=== PATIENT | male | born 1955 | race Caucasian/White ===

== ENCOUNTER → 2017-05-07 | Outpatient (CLI) | payer BC ==
[2017-05-07 16:03] LABS: Anisocytosis Slight; CH 18.7; CHCM 26.3; HCT 25.6 % (39.0-53.0); HDW 3.91; Hypochromasia Marked; MCH 19.3 pg (25.0-35.0); MCHC 27.1 g/dL (31.0-37.0); MCV 71.2 fL (80.0-100.0); Mean Platelet Volume 6.9; Microcytosis Moderate; Poikilocytosis Slight; RDW 16.4 % (11.5-15.5); WBC 4.9 k/uL (3.8-10.6)
[2017-05-07 16:30] LABS: HGB 6.9 gm/dL (13.0-17.5)
== END ==
LOC: LABPAT 14:29
PROVIDERS: ATTEND Internal Medicine Interventional Cardiology
DX: Z01.812 Encounter for preprocedural laboratory examination (principal); I25.10 Atherosclerotic heart disease of native coronary artery without angina pectoris
CPT/HCPCS: 36415; 85027

== ENCOUNTER → 2017-05-08 | Outpatient (CLI) | payer BC ==
[2017-05-08 13:37] LABS: % Iron Saturation 3.7 % (20-50)
== END | disposition home or self-care (01) ==
LOC: LABWHC1 07:56
PROVIDERS: ATTEND Internal Medicine Interventional Cardiology
DX: I25.10 Atherosclerotic heart disease of native coronary artery without angina pectoris (principal); D64.9 Anemia, unspecified
CPT/HCPCS: 36415; 82728; 83540; 83550

== ENCOUNTER 2017-05-26 11:53 | Day surgery (SDC) | payer BC ==
[2017-05-22 15:26] VITALS: BMI 37.3
[~2017-05-26 11:53] MED LIST: LACTATED RINGERS 1,000 ML IV SCH; LIDOCAINE 1% 20 ML VIAL (10MG/ML) FOR IV START INTRADERMA PRN
[2017-05-26 12:47] VITALS: RESP 18; TEMP 97.8
[2017-05-26] MEDS ORDERED: PROPOFOL 10 MG/ML 20 ML VIAL IV ONE (13:02)
[2017-05-26] MEDS ORDERED: fentaNYL (PF) 50 MCG/ML 2 ML AMP ONE (13:02)
[2017-05-26 13:35] LABS: Anisocytosis Moderate; Basophils % (A) 1 %; CH 20.1; CHCM 28.1; Eosinophils # (A) 0.1 k/uL (0-0.7); Eosinophils % (A) 2 %; HCT 31.1 % (39.0-53.0); HDW 3.72; Hypochromasia Marked; Luc # (Auto) 0.15; Luc % (Auto) 4; Lymphocytes # (A) 0.9 k/uL (1.0-4.8); Lymphocytes % (A) 21 %; MCH 21.2 pg (25.0-35.0); MCHC 29.6 g/dL (31.0-37.0); MCV 71.7 fL (80.0-100.0); Mean Platelet Volume 6.6; Microcytosis Marked; Monocytes # (A) 0.2 k/uL (0-1.0); Monocytes % (A) 5 %; Neutrophils # (A) 2.9 k/uL (1.3-7.7); Neutrophils % (A) 69 %; Poikilocytosis Slight; RBC 4.34 m/uL (4.30-5.90); RDW 20.1 % (11.5-15.5); WBC 4.3 k/uL (3.8-10.6); WBC (Perox) 4.33
[2017-05-26 13:38] VITALS: PULSE 67
--- NOTE | 2017-05-26 13:39 | P.PCN ---
Date of Procedure: 05/26/17 Preoperative Diagnosis: Postoperative Diagnosis: Procedure(s) Performed: Procedures: 1. Esophagogastroduodenoscopy and biopsy. 2. Total colonoscopy. Preoperative diagnosis: Iron deficiency anemia. Postoperative diagnosis: 1. Very small sliding hiatal hernia with no obvious esophagitis or complicated reflux disease. 2. Mild antral gastritis. 3. Mild duodenitis with no ulcers or active bleeding. 4. Internal hemorrhoids, otherwise, exam of the colon to the cecum within normal limits. Preparation: HalfLytely prep. Sedation: Was provided by anesthesia. Brief clinical history: The patient is a 61-year-old male who is referred for this evaluation because of profound anemia, Hb 6.9, noted earlier this month with decreased MCV. The patient has history of polyps and on his last colonoscopy in January 2016 he had 3 small polyps removed. His prior exam before that was in October 2010. He had no prior upper endoscopy. He has no significant GI complaints. Procedure: With the patient on his left lateral decubitus position and after informed consent and adequate sedation, I passed the Olympus-GIF 160 video upper endoscope through the cricopharyngeus down the esophagus. GE junction was around 38 cm from the incisors and there was a very small sliding hiatal hernia. The esophagus did not show any obvious erosions, ulcers, strictures or Salas's esophagus. The endoscope was then passed into the stomach which was insufflated with air and inspected in detail including the retroflex view in the cardia. There was minimal mottling and erythema in the antrum but no ulcers or erosions. Pyloric channel, duodenal bulb, post bulbar area and ending duodenum were examined. There was some patches of erythema and submucosal hemorrhage in the duodenal bulb but no ulcers, erosions or bleeding. I obtained biopsies from the duodenum, antrum and esophagus then the endoscope was withdrawn and I proceeded with the colonoscopy. Perianal area did not show any fissures or fistulas. There were no masses felt on digital rectal examination. The Olympus CFQ 160L video colonoscope was then inserted in the rectum in the usual fashion and advanced to the cecum. There were no polyps or tumors seen or any mucosal abnormalities or bleeding or any obvious diverticular disease. I retroflexed endoscope in the rectum before the endoscope was withdrawn. Grade 2 internal hemorrhoids were noted and there was no bleeding. The patient tolerated the procedure well. Plan: The patient was reassured. If he continues to manifest evidence of bleeding and anemia, I would recommend capsule endoscopy to evaluate the small intestine. He will follow up with you as planned and I will be happy to see as outpatient if the problem persists or recurs. Implants: Indications for Procedure: Operative Findings: Description of Procedure:
[2017-05-26 13:42] LABS: HGB 9.2 gm/dL (13.0-17.5)
[2017-05-26 13:56] VITALS: BP 130/76
== END 2017-05-26 14:33 | disposition home or self-care (01) ==
LOC: ORWHC2ENDO 11:53
DX: K29.50 Unspecified chronic gastritis without bleeding (principal); K21.0 Gastro-esophageal reflux disease with esophagitis; K44.9 Diaphragmatic hernia without obstruction or gangrene; K29.80 Duodenitis without bleeding; K64.1 Second degree hemorrhoids; D50.9 Iron deficiency anemia, unspecified; I25.10 Atherosclerotic heart disease of native coronary artery without angina pectoris; I10 Essential (primary) hypertension; I49.9 Cardiac arrhythmia, unspecified; E78.5 Hyperlipidemia, unspecified; G47.33 Obstructive sleep apnea (adult) (pediatric); Z79.02 Long term (current) use of antithrombotics/antiplatelets; Z79.82 Long term (current) use of aspirin; Z79.899 Other long term (current) drug therapy
CPT/HCPCS: 88305; 85025; 88312; 88342; 45378; 43239; J3010; J2704

== ENCOUNTER → 2017-06-30 | Outpatient (CLI) | payer BC ==
[2017-06-30 10:51] LABS: Anisocytosis Slight; CH 21.4; CHCM 28.8; HCT 34.7 % (39.0-53.0); HGB 10.2 gm/dL (13.0-17.5); Hypochromasia Marked; MCH 21.7 pg (25.0-35.0); MCHC 29.3 g/dL (31.0-37.0); Mean Platelet Volume 8.3; Microcytosis Moderate; RBC 4.68 m/uL (4.30-5.90); RDW 18.8 % (11.5-15.5); WBC 5.2 k/uL (3.8-10.6)
== END | disposition home or self-care (01) ==
LOC: LABWHC1 10:28
PROVIDERS: ATTEND Internal Medicine Interventional Cardiology
DX: D64.9 Anemia, unspecified (principal); I25.10 Atherosclerotic heart disease of native coronary artery without angina pectoris
CPT/HCPCS: 36415; 85027

== ENCOUNTER → 2017-09-18 | Outpatient (CLI) | payer BC ==
[2017-09-18 09:08] LABS: Anisocytosis Moderate; HDW 3.53; Microcytosis Slight; Poikilocytosis Slight
[2017-09-18 09:10] LABS: CH 27.7; CHCM 33.5; HGB 10.4 gm/dL (13.0-17.5); MCH 26.9 pg (25.0-35.0); MCHC 32.6 g/dL (31.0-37.0); MCV 82.7 fL (80.0-100.0); Mean Platelet Volume 7.8; RBC 3.87 m/uL (4.30-5.90); RDW 20.3 % (11.5-15.5); WBC 4.2 k/uL (3.8-10.6)
[2017-09-18 09:15] LABS: Anion Gap 10 mmol/L; Blood Urea Nitrogen 14 mg/dL (9-20); Carbon Dioxide 26 mmol/L (22-30); Chloride 103 mmol/L (98-107); Glucose 102 mg/dL (74-99); Potassium 4.1 mmol/L (3.5-5.1); Sodium 139 mmol/L (137-145)
[2017-09-18 09:16] LABS: ALT 34 U/L (21-72); AST 23 U/L (17-59); Alkaline Phosphatase 69 U/L (38-126); Non-African American GFR(MDRD) >60 (>60 ml/min/1.73 sqM); Total Bilirubin 0.4 mg/dL (0.2-1.3); Total Protein 7.4 g/dL (6.3-8.2)
[2017-09-18 15:52] LABS: Iron Saturation 9.55 (15.00-50.00)
== END | disposition home or self-care (01) ==
LOC: LABWHC1 08:31
PROVIDERS: ATTEND Internal Medicine
DX: I10 Essential (primary) hypertension (principal); E78.5 Hyperlipidemia, unspecified; D64.9 Anemia, unspecified
CPT/HCPCS: 36415; 80053; 82728; 83540; 83550; 85027

== ENCOUNTER → 2021-01-18 | Outpatient (CLI) | payer BC | END | disposition home or self-care (01) | LOC: LABWHC1 13:15 | PROVIDERS: ATTEND Internal Medicine | DX: Z03.818 Encounter for observation for suspected exposure to other biological agents ruled out (principal); Z20.822 Contact with and (suspected) exposure to COVID-19 | CPT/HCPCS: U0003; C9803 ==

== ENCOUNTER 2021-03-26 12:12 | Emergency (ER) | payer BC ==
[2021-03-26 12:30] VITALS: BP 177/95; PULSE 96; TEMP 98.4
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
--- NOTE | 2021-03-26 13:30 | US ---
EXAMINATION TYPE: US venous doppler duplex LE RT DATE OF EXAM: 03/26/2021 1:05 PM COMPARISON: NONE CLINICAL HISTORY: pain. Pt states right leg pain and redness SIDE PERFORMED: Right TECHNIQUE: The lower extremity deep venous system is examined utilizing real time linear array sonog jose with graded compression, doppler sonography and color-flow sonography. VESSELS IMAGED: Common Femoral Vein Deep Femoral Vein Greater Saphenous Vein * Femoral Vein Popliteal Vein Small Saphenous Vein * Proximal Calf Veins (* superficial vessels) Right Leg: Negative for DVT IMPRESSION: No evidence for DVT at this time.
[2021-03-26 14:07] VITALS: RESP 17
== END 2021-03-26 14:07 | disposition home or self-care (01) ==
LOC: EC 12:12
DX: L03.115 Cellulitis of right lower limb (principal); E78.5 Hyperlipidemia, unspecified; I10 Essential (primary) hypertension; I25.10 Atherosclerotic heart disease of native coronary artery without angina pectoris; K21.9 Gastro-esophageal reflux disease without esophagitis; M19.90 Unspecified osteoarthritis, unspecified site; Z79.82 Long term (current) use of aspirin; F41.9 Anxiety disorder, unspecified
CPT/HCPCS: 99284

== ENCOUNTER 2021-04-17 10:12 | Emergency (ER) | payer BC ==
[2021-04-17 10:36] VITALS: BP 138/76; PULSE 73; RESP 18; TEMP 98.2
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
== END 2021-04-17 11:40 | disposition left against medical advice (07) ==
LOC: EC 10:12
DX: L03.115 Cellulitis of right lower limb (principal); E78.5 Hyperlipidemia, unspecified; I10 Essential (primary) hypertension; I25.10 Atherosclerotic heart disease of native coronary artery without angina pectoris; K21.9 Gastro-esophageal reflux disease without esophagitis; G47.30 Sleep apnea, unspecified; M19.90 Unspecified osteoarthritis, unspecified site; Z53.29 Procedure and treatment not carried out because of patient's decision for other reasons; Z79.82 Long term (current) use of aspirin
CPT/HCPCS: 99282

== ENCOUNTER 2021-04-17 16:44 | Observation (INO) | payer BC ==
--- NOTE | 2021-04-17 17:39 | ED ---
General Adult HPI - General Chief complaint: Skin/Abscess/Foreign Body Stated complaint: revisit-IV antibiotics Time Seen by Provider: 04/17/21 16:45 Source: patient, RN notes reviewed, old records reviewed Mode of arrival: ambulatory Limitations: no limitations - History of Present Illness Initial comments: This is a 65-year-old male who presents emergency Department complaining of a two-week history of right leg cellulitis. Patient was on antibiotics for 10 days but the redness is getting worse and it's very tender. Patient states she's already had an ultrasound that leg and there was no clot. Patient's primary medical care doctor wanted him to come in to be admitted for cellulitis. Patient denies any fever chills per patient denies any recent injury or trauma. Patient denies any cuts or openings to the skin that he knows of. Patient d enies being a diabetic. - Related Data Home Medications Medication Instructions Recorded Confirmed Aspirin [Adult Low Dose Aspirin EC] 81 mg PO DAILY 05/22/17 04/17/21 Carvedilol [Coreg] 12.5 mg PO BID 05/22/17 04/17/21 Albuterol Inhaler [Ventolin Hfa 2 puff INHALATION RT-Q4H PRN 04/17/21 04/17/21 Inhaler] Ferrous Sulfate [Feosol] 325 mg PO HS 04/17/21 04/17/21 Irbesartan [Avapro] 300 mg PO DAILY 04/17/21 04/17/21 Rosuvastatin [Crestor] 20 mg PO HS 04/17/21 04/17/21 amLODIPine [Norvasc] 5 mg PO HS 04/17/21 04/17/21 hydroCHLOROthiazide 25 mg PO DAILY 04/17/21 04/17/21 Allergies Allergy/AdvReac Type Severity Reaction Status Date / Time No Known Allergies Allergy Verified 04/17/21 17:28 Review of Systems ROS Statement: Those systems with pertinent positive or pertinent negative responses have been documented in the HPI. ROS Other: All systems not noted in ROS Statement are negative. Past Medical History Past Medical History: Coronary Artery Disease (CAD), Chest Pain / Angina, GERD/Reflux, Hyperlipidemia, Hypertension, Osteoarthritis (OA), Sleep Apnea/CPAP/BIPAP Additional Past Medical History / Comment(s): occ "heart fluttering" , occ palpitations, anemia- had iron infusion 1 week ago for Hgb 6.9- Dr LORRIE Waller canceled cardiac procedure and wanted pt to have EGD/Colonoscopy first. covid 19 03/21 History of Any Multi-Drug Resistant Organisms: None Reported Past Surgical History: Heart Catheterization With Stent, Orthopedic Surgery Additional Past Surgical History / Comment(s): angioplasty x 2/total 3 stents, rt tibia/fibia-fx with pin, Past Anesthesia/Blood Transfusion Reactions: Motion Sickness Date of Last Stent Placement:: 07/2014 Past Psychological History: Anxiety, Panic Disorder Smoking Status: Never smoker Past Alcohol Use History: Rare Past Drug Use History: None Reported - Past Family History Brother(s) Family Medical History: Cancer General Exam - General Exam Comments Initial Comments: GENERAL: Patient is well-developed and well-nourished. Patient is nontoxic and well- hydrated and is in mild distress. ENT: Neck is soft and supple. No significant lymphadenopathy is noted. Oropharynx is clear. Moist mucous membranes. Neck has full range of motion without eliciting any pain. EYES: The sclera were anicteric and conjunctiva were pink and moist. Extraocular movements were intact and pupils were equal round and reactive to light. Eyelids were unremarkable. PULMONARY: Unlabored respirations. Good breath sounds bilaterally. No audible rales rhonchi or wheezing was noted. CARDIOVASCULAR: There is a regular rate and rhythm without any murmurs gallops or rubs. ABDOMEN: Soft and nontender with normal bowel sounds. SKIN: Skin is clear with no lesions or rashes and otherwise unremarkable. NEUROLOGIC: Patient is alert and oriented x3. Cranial nerves II through XII are grossly intact. Motor and sensory are also intact. Normal speech, volume and content. Symmetrical smile. MUSCULOSKELETAL: Patient has erythema of the lower right leg is very tender to touch and warm to touch. LYMPHATICS: No significant lymphadenopathy is noted PSYCHIATRIC: Normal psychiatric evaluation. Limitations: no limitations Course Vital Signs 04/17/21 16:46 Temperature 98.5 F Pulse Rate 80 Respiratory 20 Rate Blood Pressure 152/79 O2 Sat by Pulse 96 Oximetry Medical Decision Making - Medical Decision Making Patient was started on [facility] emergency department. I spoke with Dr. Alvarez she agreed to admit the patient admitted the patient I wrote admitting orders. - Lab Data Result diagrams: 04/17/21 17:40 04/17/21 17:40 Lab Results 04/17/21 04/17/21 04/17/21 Range/Units 17:40 17:40 17:40 WBC 6.6 (3.8-10.6) k/uL RBC 4.67 (4.30-5.90) m/uL Hgb 13.1 (13.0-17.5) gm/dL Hct 39.4 (39.0-53.0) % MCV 84.4 (80.0-100.0) fL MCH 28.0 (25.0-35.0) pg MCHC 33.2 (31.0-37.0) g/dL RDW 14.1 (11.5-15.5) % Plt Count 246 (150-450) k/uL MPV 7.0 Neutrophils % 67 % Lymphocytes % 22 % Monocytes % 5 % Eosinophils % 4 % Basophils % 1 % Neutrophils # 4.4 (1.3-7.7) k/uL Lymphocytes # 1.4 (1.0-4.8) k/uL Monocytes # 0.3 (0-1.0) k/uL Eosinophils # 0.3 (0-0.7) k/uL Basophils # 0.1 (0-0.2) k/uL Sodium 138 (137-145) mmol/L Potassium 3.9 (3.5-5.1) mmol/L Chloride 103 (98-107) mmol/L Carbon Dioxide 28 (22-30) mmol/L Anion Gap 7 mmol/L BUN 16 (9-20) mg/dL Creatinine 0.69 (0.66-1.25) mg/dL Est GFR (CKD-EPI)AfAm >90 (>60 ml/min/1.73 sqM) Est GFR (CKD-EPI)NonAf >90 (>60 ml/min/1.73 sqM) Glucose 94 (74-99) mg/dL Plasma Lactic Acid Edwin 0.7 (0.7-2.0) mmol/L Calcium 9.4 (8.4-10.2) mg/dL Total Bilirubin 0.4 (0.2-1.3) mg/dL AST 26 (17-59) U/L ALT 19 (4-49) U/L Alkaline Phosphatase 108 (38-126) U/L Total Protein 7.8 (6.3-8.2) g/dL Albumin 4.3 (3.5-5.0) g/dL Disposition Clinical Impression: Cellulitis of right leg Disposition: ADMITTED IP TO THIS [facility] Referrals: Charlee Nielsen MD [Primary Care Provider] - 1-2 days Time of Disposition: 18:55
[2021-04-17 18:08] LABS: Basophils # (A) 0.1 k/uL (0-0.2); Basophils % (A) 1 %; Eosinophils # (A) 0.3 k/uL (0-0.7); Eosinophils % (A) 4 %; HCT 39.4 % (39.0-53.0); HGB 13.1 gm/dL (13.0-17.5); Lymphocytes # (A) 1.4 k/uL (1.0-4.8); Lymphocytes % (A) 22 %; MCHC 33.2 g/dL (31.0-37.0); MCV 84.4 fL (80.0-100.0); Monocytes # (A) 0.3 k/uL (0-1.0); Monocytes % (A) 5 %; Neutrophils # (A) 4.4 k/uL (1.3-7.7); Neutrophils % (A) 67 %; Platelet Count 246 k/uL (150-450); RBC 4.67 m/uL (4.30-5.90); RDW 14.1 % (11.5-15.5); WBC 6.6 k/uL (3.8-10.6)
[2021-04-17 18:20] LABS: ALT 19 U/L (4-49); AST 26 U/L (17-59); African American GFR (CKD) >90 (>60 ml/min/1.73 sqM); Albumin 4.3 g/dL (3.5-5.0); Alkaline Phosphatase 108 U/L (38-126); Anion Gap 7 mmol/L; Blood Urea Nitrogen 16 mg/dL (9-20); Calcium 9.4 mg/dL (8.4-10.2); Carbon Dioxide 28 mmol/L (22-30); Chloride 103 mmol/L (98-107); Glucose 94 mg/dL (74-99); Non-African American GFR(CKD) >90 (>60 ml/min/1.73 sqM); Potassium 3.9 mmol/L (3.5-5.1); Sodium 138 mmol/L (137-145); Total Bilirubin 0.4 mg/dL (0.2-1.3); Total Protein 7.8 g/dL (6.3-8.2)
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
[2021-04-17] MEDS ORDERED: PIPERACILLIN-TAZOBACTAM 3.375 GM in SODIUM CHLORIDE 0.9% 100 ML IVPB STA (18:44)
[2021-04-17] MEDS ORDERED: SODIUM CHLORIDE 0.9% 1,000 ML IV ONE (18:57)
[2021-04-17] MEDS ORDERED: ALBUTEROL NEBULIZED 2.5 MG/3 ML INHALATION PRN (19:18)
[2021-04-17] MEDS ORDERED: VANCOMYCIN IV PER PHARMACY 1 EACH MISC MISCELLANE PRN (19:42)
[2021-04-17] MEDS ORDERED: VANCOMYCIN 1,750 MG in SODIUM CHLORIDE 0.9% 500 ML 500 ML IVPB ONE (20:00)
[2021-04-17] MEDS: ATORVASTATIN 40 MG TAB PO SCH (20:42)
[2021-04-17] MEDS: amLODIPine 5 MG TAB PO SCH (20:42)
[2021-04-17] MEDS: carvediloL 12.5 MG TAB PO SCH (20:43)
[2021-04-17] MEDS ORDERED: ACETAMINOPHEN TAB 325 MG TAB PO PRN (22:31)
--- NOTE | 2021-04-17 22:51 | P.HPIM ---
History of Present Illness H&P Date: 04/17/21 Chief Complaint: cellulitis failed OP therapy 65 year old male with hypertension , hyperlipidemia patient comes in upon recommendations of his PCP , due to failed OP treatment of his cellulitis of the right leg with Keflex for about 10 days now, he denies any fever, chills, recent travel , denies any injuries or recent trauma. he does have some chronic changes over his right leg due to accident in the past. he denies any open wounds or drainage. he currently feels well, reports some swelling and erythema over the right leg, warm to the touch and tender. venous duplex US done as OP reported to be negative for acute DVT ini the ED , no fever, no leukocytosis . patient given a dose of zosyn by the ED. patient had symptomatic covid infection not requiring hospital stay at end of january . he is currently asymptomatic and gradually returning to normal physical activity . he tested positive for COIVD today Review of Systems Pertinent positives as noted in HPI. All other systems were reviewed and are negative Past Medical History Past Medical History: Coronary Artery Disease (CAD), Chest Pain / Angina, GERD/Reflux, Hyperlipidemia, Hypertension, Osteoarthritis (OA), Sleep Apnea/CPAP/BIPAP Additional Past Medical History / Comment(s): occ "heart fluttering" , occ palpitations, anemia- had iron infusion 1 week ago for Hgb 6.9- Dr LORRIE Waller canceled cardiac procedure and wanted pt to have EGD/Colonoscopy first. covid 19 03/21 History of Any Multi-Drug Resistant Organisms: None Reported Past Surgical History: Heart Catheterization With Stent, Orthopedic Surgery Additional Past Surgical History / Comment(s): angioplasty x 2/total 3 stents, rt tibia/fibia-fx with pin, Past Anesthesia/Blood Transfusion Reactions: Motion Sickness Date of Last Stent Placement:: 07/2014 Past Psychological History: Anxiety, Panic Disorder Smoking Status: Never smoker Past Alcohol Use History: Rare Past Drug Use History: None Reported - Past Family History Brother(s) Family Medical History: Cancer Medications and Allergies Home Medications Medication Instructions Recorded Confirmed Type Aspirin [Adult Low Dose Aspirin EC] 81 mg PO DAILY 05/22/17 04/17/21 History Carvedilol [Coreg] 12.5 mg PO BID 05/22/17 04/17/21 History Albuterol Inhaler [Ventolin Hfa 2 puff INHALATION RT-Q4H PRN 04/17/21 04/17/21 History Inhaler] Ferrous Sulfate [Feosol] 325 mg PO HS 04/17/21 04/17/21 History Irbesartan [Avapro] 300 mg PO DAILY 04/17/21 04/17/21 History Rosuvastatin [Crestor] 20 mg PO HS 04/17/21 04/17/21 History amLODIPine [Norvasc] 5 mg PO HS 04/17/21 04/17/21 History hydroCHLOROthiazide 25 mg PO DAILY 04/17/21 04/17/21 History Allergies Allergy/AdvReac Type Severity Reaction Status Date / Time No Known Allergies Allergy Verified 04/17/21 17:28 Physical Exam Vitals: Vital Signs Temp Pulse Resp BP Pulse Ox 04/17/21 16:46 98.5 F 80 20 152/79 96 Intake and Output 04/17/21 04/17/21 04/17/21 06:59 14:59 22:59 Other: Weight 105.687 kg Constitutional: No acute distress, conversant, pleasant Eyes: Anicteric sclerae, moist conjunctiva, Pupils equal round reactive to light ENMT: NC/AT Oropharynx clear, no erythema, or exudates Neck: Supple, FROM, no masses, or JVD No carotid bruits No thyromegaly Lungs: Clear to auscultation Clear to percussion Normal respiratory effort, no accessory muscle use Cardiovascular: Heart regular in rate and rhythm, No murmurs, gallops, or rubs No peripheral edema Abdominal: Soft Nontender, no guarding, rebound or rigidity Abdomen moving with respiration Normoactive bowel sounds No hepatomegaly, No splenomegaly No palpable mass No abdominal wall hernia noted Skin: erythema and induration over the mid right leg , with area of chronic scarring. warm to the touch and tender to palpation , otherwise. Normal temperature, tone, texture, turgor No subcutaneous nodules No ulcers Extremities: No digital cyanosis No clubbing Pedal pulses intact and symmetrical Radial pulses intact and symmetrical No calf tenderness Psychiatric: Alert and oriented to person, place and time Appropriate affect fair judgement Neuro Muscles Strength 5/5 in all 4 extremities Sensation to light touch grossly present throughout Cranial nerves II-XII grossly intact No focal sensory deficits Lymphatics: no palpable cervical or supraclavicular , or inguinal lymph nodes Results CBC & Chem 7: 04/17/21 17:40 04/17/21 17:40 Assessment and Plan Assessment: cellulitis of the right lower extremity failed OP therapy follow up cultures Xray shows no meme involvement , shows only soft tissue edema s/p zosyn in ED, will discontinue start vencomycin dosing by pharmacy pain control tylenol for fever monitor vital signs chronic conditions hypertension , controlled , resume home meds hyperlipidemia , resume home meds h/o CAD, stable now COVID positive, asymptomatic CODE STATUS:full code DVT prophylaxis: heparin sc tid Discussed with: Patient, ER, RN Anticipated length of stay > than [address]: home A total of 65 minutes was spent on the care of this complex patient more than 5 0% of the time was spent in counseling and care coordination.
[2021-04-18] MEDS ORDERED: PIPERACILLIN-TAZOBACTAM 3.375 GM in SODIUM CHLORIDE 0.9% 100 ML IVPB SCH ×2
[2021-04-18 05:20] LABS: Basophils # (A) 0.1 k/uL (0-0.2); Basophils % (A) 1 %; Eosinophils # (A) 0.2 k/uL (0-0.7); Eosinophils % (A) 3 %; HCT 37.8 % (39.0-53.0); HGB 12.9 gm/dL (13.0-17.5); Lymphocytes # (A) 1.4 k/uL (1.0-4.8); Lymphocytes % (A) 23 %; MCHC 34.1 g/dL (31.0-37.0); Mean Platelet Volume 6.9; Monocytes # (A) 0.3 k/uL (0-1.0); Monocytes % (A) 5 %; Neutrophils # (A) 4.1 k/uL (1.3-7.7); Neutrophils % (A) 66 %; Platelet Count 215 k/uL (150-450); RBC 4.45 m/uL (4.30-5.90); WBC 6.2 k/uL (3.8-10.6)
[2021-04-18] MEDS: carvediloL 12.5 MG TAB PO SCH ×2 (06:45→17:25)
[2021-04-18] MEDS: hydroCHLOROthiazide 25 MG TAB PO SCH (08:37)
[2021-04-18] MEDS: ASPIRIN 81 MG PO SCH (08:37)
[2021-04-18] MEDS: VANCOMYCIN 1,750 MG in SODIUM CHLORIDE 0.9% 500 ML 500 ML IVPB SCH ×2 (08:37→20:09)
[2021-04-18] MEDS: LOSARTAN 50 MG TAB PO SCH (08:37)
[2021-04-18 10:34] LABS: African American GFR (CKD) 116.4 (60.0-200.0); Anion Gap 9.4 mmol/L (4.00-12.00); Calcium 8.8 mg/dL (8.7-10.3); Carbon Dioxide 27.6 mmol/L (21.6-31.8); Non-African American GFR(CKD) 100.4 (60.0-200.0); Potassium 3.9 mmol/L (3.5-5.5)
--- NOTE | 2021-04-18 14:05 | P.PN ---
<Oneil Blevins - Last Filed: 04/18/21 15:10> Subjective Progress Note Date: 04/18/21 Hospital course: Patient is a 65-year-old male with a past medical history of CAD with previous angioplasty and stent placement, hypertension, hyperlipidemia, GERD, obstructive sleep apnea CPAP dependent, and osteoarthritis. Patient presented to the hospital on 04/17/21 with a chief complaint of redness, pain, and swelling of right lower extremity after failing outpatient treatment for cellulitis with Keflex 10 days. Patient has been started on IV antibiotics with vancomycin and a consult has been placed to infectious disease. Patient has remained afebrile throughout hospitalization with normal vital signs. Patient also with normal WBC count of 6.6 upon arrival with repeat of 6.2. Patient did have recent infection with Covid 19 virus in which she reports testing positive at [facility] at the end of January. Patient did detect positive for Covid 19 virus through PCR again upon his arrival likely secondary to sinus infection as patient currently denies having any symptoms. Patient reports that he also had an outpatient venous Doppler of his right lower extremity a few days ago which was negative for DVTs. X-ray of right tibia and fibula showing soft tissue edema without acute osseous abnormalities, showing no evidence of osteomyelitis. Physical exam: Patient seen and fully evaluated at the bedside. He reports mild discomfort to right lower extremity and a feeling of tightness but denies any other complaints at this time. Vital signs stable. Labs unremarkable. Patient denies having any numbness/tingling/weakness or experiencing any chest pain or shortness of breath. General: non toxic, no distress, appears at stated age Derm: warm, dry. Patient with moderate redness, increased warmth, and swelling to anterior, lateral, and posterior aspect of right lower leg. Head: atraumatic, normocephalic, symmetric Eyes: EOMI, no lid lag, anicteric sclera Mouth: no lip lesion, mucus membranes moist Cardiovascular: S1S2 normal with regular rate and rhythm. No murmurs, gallops, or rubs. Positive posterior tibial pulses bilaterally. Lungs: CTA bilateral, no rhonchi, no rales , no accessory muscle use Abdominal: soft, nontender to palpation, no guarding, no appreciable organomegaly Ext: no gross muscle atrophy, no edema, no contractures Neuro: CN II-XI grossly intact, no focal neuro deficits Psych: Alert, oriented, appropriate affect Plan of care: Cellulitis of right lower extremity failed outpatient treatment -Continue IV antibiotics with vancomycin -Blood cultures obtained, pending results. -Symptomatic care and pain management. -Consult placed to infectious disease, Dr. Preston for evaluation. Hypertension -Monitor vital signs and Continuation of daily medication with amlodipine, carvedilol, hydrochlorothiazide, and losartan. Hyperlipidemia -Continue daily home medication regimen with atorvastatin 40 mg nightly. -Heart healthy diet. Obstructive sleep apnea -Continuation of home CPAP/BiPAP -Encourage use of incentive spirometry. History of CAD with previous stent placement -Continue daily home medication regimen with aspirin, amlodipine, atorvastatin, carvedilol, hydrochlorothiazide, and losartan. CODE STATUS: Full code DVT prophylaxis: Lovenox Discussed with: Patient and RN Anticipated discharge date: 1-[address]: Home A total of 45 minutes was spent on the care of this complex patient more than 50% of the time was spent in counseling and care coordination.. Objective - Vital Signs Vital signs: Vital Signs Temp 98.4 F 04/18/21 10:24 Pulse 58 L 04/18/21 10:24 Resp 15 04/18/21 10:24 BP 125/68 04/18/21 10:24 Pulse Ox 96 04/18/21 10:24 Intake & Output 04/17/21 04/18/21 04/18/21 18:59 06:59 18:59 Weight 105.687 kg - Labs CBC & Chem 7: 04/18/21 04:29 04/18/21 04:29 Labs: Abnormal Lab Results - Last 24 Hours (Table) 04/17/21 04/18/21 Range/Units 19:31 04:29 Hgb 12.9 L (13.0-17.5) gm/dL Hct 37.8 L (39.0-53.0) % Coronavirus (PCR) Detected A (Not Detectd) <Ely Alvarez A - Last Filed: 04/18/21 18:53> Subjective Patient seen and examined independently. Patient was also seen by Oneil Blevins NP and case was discussed. I am in agreement with subjective, physical exam, assessment and plan as written above and amended below. Patient states that he has had swelling in his right lower extremity for quite some time after surgery. He also has noticed darkening of his leg over time. General: non toxic, no distress, appears at stated age Ext: no gross muscle atrophy, right lower extremity with some edema, eusebio appearance, hemosiderin deposits, loss of hair in the lateral aspect of the right calf, no warmth Neuro: CN II-XI grossly intact, no focal neuro deficits Psych: Alert, oriented, appropriate affect Concerned that this may not be infectious etiology secondary to duration, no white blood cell count, and afebrile. Concerns for possible vascular disturbances secondary to history of surgery on that leg, loss of hair growth, and hemosiderin deposits noted. We'll consult vascular surgery. Objective - Vital Signs Vital signs: Vital Signs Temp 98.3 F 04/18/21 17:28 Pulse 71 04/18/21 17:28 Resp 18 04/18/21 17:28 BP 156/81 04/18/21 17:28 Pulse Ox 96 04/18/21 17:28 Intake & Output 04/17/21 04/18/21 04/18/21 18:59 06:59 18:59 Weight 105.687 kg 105.687 kg - Labs CBC & Chem 7: 04/18/21 04:29 04/18/21 04:29 Labs: Abnormal Lab Results - Last 24 Hours (Table) 04/17/21 04/18/21 Range/Units 19:31 04:29 Hgb 12.9 L (13.0-17.5) gm/dL Hct 37.8 L (39.0-53.0) % Coronavirus (PCR) Detected A (Not Detectd)
[2021-04-18] MEDS: ENOXAPARIN 40 MG/0.4 ML SYRINGE SQ SCH (17:25)
[2021-04-18 18:33] VITALS: RESP 18
[2021-04-18] MEDS: ATORVASTATIN 40 MG TAB PO SCH (20:09)
[2021-04-18] MEDS: amLODIPine 5 MG TAB PO SCH (20:09)
[2021-04-19 02:44] VITALS: BP 145/78; PULSE 69; TEMP 98.4
[2021-04-19] MEDS: hydroCHLOROthiazide 25 MG TAB PO SCH (07:29)
[2021-04-19] MEDS: ASPIRIN 81 MG PO SCH (07:29)
[2021-04-19] MEDS: VANCOMYCIN 1,750 MG in SODIUM CHLORIDE 0.9% 500 ML 500 ML IVPB SCH (07:30)
[2021-04-19] MEDS: carvediloL 12.5 MG TAB PO SCH (07:30)
[2021-04-19] MEDS: ENOXAPARIN 40 MG/0.4 ML SYRINGE SQ SCH (07:30)
[2021-04-19] MEDS: LOSARTAN 50 MG TAB PO SCH (07:30)
[2021-04-19 07:40] LABS: African American GFR (CKD) >90 (>60 ml/min/1.73 sqM); Non-African American GFR(CKD) >90 (>60 ml/min/1.73 sqM)
--- NOTE | 2021-04-19 10:10 | P.DS ---
<Oneil Blevins - Last Filed: 04/19/21 14:51> Providers Expected date of discharge: 04/19/21 Hospital Course: Discharge Diagnosis: Right lower extremity pain and swelling secondary to Peripheral venous insufficiency with venous stasis dermatitis Hypertension Hyperlipidemia Obstructive sleep apnea History of CAD with previous stent placement Hospital Course: Patient is a 65-year-old male with a past medical history of CAD with previous angioplasty and stent placement, hypertension, hyperlipidemia, GERD, obstructive sleep apnea CPAP dependent, and osteoarthritis. Patient presented to the hospital on 04/17/21 with a chief complaint of redness, pain, and swelling of right lower extremity after failing outpatient treatment for cellulitis with Keflex 10 days. Patient was started on IV antibiotics with vancomycin, admitted under our services and a consult was placed to infectious disease as well as vascular surgery. Patient has remained afebrile throughout hospitalization with normal vital signs. Patient also with normal WBC count of 6.6 upon arrival with repeat of 6.2. Patient did have recent infection with Covid 19 virus in which he reports testing positive at [facility] at the end of January. Patient did detect positive for Covid 19 virus through PCR again upon his arrival likely secondary to recent infection as patient currently denies having any symptoms. Patient reports that he also had an outpatient venous Doppler of his right lower extremity a few days ago which were also negative for DVTs. X-ray of right tibia and fibula showing soft tissue edema without acute osseous abnormalities, showing no evidence of osteomyelitis. Lower extremity erythema, swelling, and increased warmth significantly improved with elevation of right lower extremity. Order placed for compression stockings. Vascular surgery recommending outpatient follow-up for further workup and testing. Vancomycin discontinued as cellulitis was ruled out. Patient being discharged home and instructed to wear compression stockings daily. Patient to follow-up with his PCP in 1-2 days and vascular surgery in 2 weeks as discussed. All questions answered, patient stable for discharge home at this time. Physical exam: Patient seen and fully evaluated at the bedside. He reports mild discomfort to right lower extremity and a feeling of tightness but denies any other complaints at this time. Vital signs remain stable. Patient and kidneys to deny having any numbness/tingling/weakness or experiencing any chest pain or shortness of breath. General: non toxic, no distress, appears at stated age Derm: warm, dry. Patient with improvement in erythema, edema, and increased warmth of right lower extremity with elevation. Venous stasis dermatitis present. Head: atraumatic, normocephalic, symmetric Eyes: EOMI, no lid lag, anicteric sclera Mouth: no lip lesion, mucus membranes moist Cardiovascular: S1S2 normal with regular rate and rhythm. No murmurs, gallops, or rubs. Positive posterior tibial pulses bilaterally. Lungs: CTA bilateral, no rhonchi, no rales , no accessory muscle use Abdominal: soft, nontender to palpation, no guarding, no appreciable organomegaly Ext: no gross muscle atrophy, no edema, no contractures Neuro: CN II-XI grossly intact, no focal neuro deficits Psych: Alert, oriented, appropriate affect A total of 45 minutes of time were spent preparing this complex discharge summary. Patient Condition at Discharge: Good Plan - Discharge Summary Discharge Rx Participant: Yes New Discharge Prescriptions: Continue Carvedilol [Coreg] 12.5 mg PO BID Aspirin [Adult Low Dose Aspirin EC] 81 mg PO DAILY Irbesartan [Avapro] 300 mg PO DAILY hydroCHLOROthiazide 25 mg PO DAILY Albuterol Inhaler [Ventolin Hfa Inhaler] 2 puff INHALATION RT-Q4H PRN PRN Reason: Shortness Of Breath Rosuvastatin [Crestor] 20 mg PO HS Ferrous Sulfate [Iron (65 MG Elemental)] 325 mg PO HS amLODIPine [Norvasc] 5 mg PO HS Discharge Medication List Aspirin [Adult Low Dose Aspirin EC] 81 mg PO DAILY 05/22/17 [History] Carvedilol [Coreg] 12.5 mg PO BID 05/22/17 [History] Albuterol Inhaler [Ventolin Hfa Inhaler] 2 puff INHALATION RT-Q4H PRN 04/17/21 [History] Ferrous Sulfate [Iron (65 MG Elemental)] 325 mg PO HS 04/17/21 [History] Irbesartan [Avapro] 300 mg PO DAILY 04/17/21 [History] Rosuvastatin [Crestor] 20 mg PO HS 04/17/21 [History] amLODIPine [Norvasc] 5 mg PO HS 04/17/21 [History] hydroCHLOROthiazide 25 mg PO DAILY 04/17/21 [History] Follow up Appointment(s)/Referral(s): Charlee Nielsen MD [Primary Care Provider] - 04/23/21 1:30 pm Layla Martinez DO [STAFF PHYSICIAN] - 05/09/21 10:15 am (Paperwork will be sent to your house to fill out and bring to your appointment. ) Patient Instructions/Handouts: Cellulitis (DC) Activity/Diet/Wound Care/Special Instructions: Activity: As tolerated Diet: Heart healthy diet Special Instructions: Please continue to wear compression stockings throughout the day. It is important upon first thing in the morning before lower extremity swelling develops. You will need to follow up outpatient with Dr. Elias as well as with Vascular Phsician-Dr. Martinez for further testing including venous dopplers. Thank you for allowing us to participate in your care, it was a pleasure having you for our patient!!! Discharge Disposition: HOME SELF-CARE <Ely Alvarez - Last Filed: 04/19/21 18:36> Providers Date of admission: 04/17/21 18:58 Attending physician: Ely Alvarez DO Consults: 04/18/21 15:12 Consult Physician Routine Consulting Provider: Solomon Preston Consult Reason/Comments: Cellulitis RLL, failed outpatient treatment with Keflex 10 days Do you want consulting provider notified?: Yes 04/18/21 18:50 Consult Physician Routine Consulting Provider: Layla Martinez Consult Reason/Comments: right lower extremity changes Do you want consulting provider notified?: Yes Primary care physician: Charlee Nielsen MD Hospital Course: I discussed the care with Oneil Blevins NP and reviewed the findings and plan as documented in the note above. I did not physically speak with or examine the patient on this date.
--- NOTE | 2021-04-19 11:29 | P.GSCN ---
History of Present Illness Consult date: 04/19/21 Reason for Consult: Cellulitis with right lower extremity changes Requesting physician: Ely Alvarez History of present illness: A 65-year-old male patient with a past medical history of hypertension, hyperlipidemia coronary artery disease, obstructive sleep apnea and recent COVID-19 infection in March of this year presented to the emergency department due to failed outpatient treatment for cellulitis of the right lower extremity. He is been on Keflex outpatient for approximately 10 days with no improvement in the redness in his lower extremity. He does have some chronic changes of his right lower extremity due to an accident in the past in , however he has no open wounds or drainage. He denies any fevers or chills. Reportedly had outpatient venous Doppler of the right lower extremity which is reported as negative for acute DVT (03/26/21). He had an x-ray of the right lower extremity which shows soft tissue edema without any acute osseous abnormality. He reports pain to right lower etremity especially with palpation. Does report swelling to the right lower extremity which he states is chronic. He denies any fever or chills, SOB, or chest pain. Review of Systems A 14 point review of system was completed all pertinent positives and negatives as stated in the HPI. Past Medical History Past Medical History: Coronary Artery Disease (CAD), Chest Pain / Angina, Hyperlipidemia, Hypertension, Osteoarthritis (OA), Sleep Apnea/CPAP/BIPAP Additional Past Medical History / Comment(s): occ "heart fluttering" , occ palpitations, anemia- had iron infusion 1 week ago for Hgb 6.9- Dr LORRIE Waller canceled cardiac procedure and wanted pt to have EGD/Colonoscopy first. covid 19 03/21 History of Any Multi-Drug Resistant Organisms: None Reported Past Surgical History: Heart Catheterization With Stent, Orthopedic Surgery Additional Past Surgical History / Comment(s): angioplasty x 2/total 3 stents, rt tibia/fibia-fx with pin, Past Anesthesia/Blood Transfusion Reactions: Motion Sickness Date of Last Stent Placement:: 07/2014 Past Psychological History: Anxiety, Panic Disorder Smoking Status: Never smoker Past Alcohol Use History: Rare Past Drug Use History: None Reported - Past Family History Brother(s) Family Medical History: Cancer Medications and Allergies Home Medications Medication Instructions Recorded Confirmed Type Aspirin [Adult Low Dose Aspirin EC] 81 mg PO DAILY 05/22/17 04/17/21 History Carvedilol [Coreg] 12.5 mg PO BID 05/22/17 04/17/21 History Albuterol Inhaler [Ventolin Hfa 2 puff INHALATION RT-Q4H PRN 04/17/21 04/17/21 History Inhaler] Ferrous Sulfate [Iron (65 MG 325 mg PO HS 04/17/21 04/17/21 History Elemental)] Irbesartan [Avapro] 300 mg PO DAILY 04/17/21 04/17/21 History Rosuvastatin [Crestor] 20 mg PO HS 04/17/21 04/17/21 History amLODIPine [Norvasc] 5 mg PO HS 04/17/21 04/17/21 History hydroCHLOROthiazide 25 mg PO DAILY 04/17/21 04/17/21 History Allergies Allergy/AdvReac Type Severity Reaction Status Date / Time No Known Allergies Allergy Verified 04/17/21 17:28 Surgical - Exam Vital Signs Temp Pulse Resp BP Pulse Ox 98.5 F 80 20 152/79 96 04/17/21 16:46 04/17/21 16:46 04/17/21 16:46 04/17/21 16:46 04/17/21 16:46 General appearance: The patient is alert, oriented, in no acute distress. HET: Head is normocephalic and atraumatic. Neck: Supple without lymphadenopathy. Trachea midline. Heart: S1 S2. Regular rate and rhythm. Lungs: Clear to auscultation. Abdomen: Soft, nontender, nondistended. Extremities: Bilateral +1 edema to lower extremities, right lateral lower extremity with erythema. Palpable b/l posterior tibialis and dorsalis pedis pulses. Neurological: No focal deficits. Strength and sensation are grossly intact. Results - Labs 04/18/21 04:29 04/19/21 06:29 Microbiology - Last 24 Hours (Table) 04/17/21 17:40 Blood Culture - Preliminary Blood No Growth after 24 hours 04/17/21 17:40 Blood Culture - Preliminary Blood No Growth after 24 hours Diabetes panel 04/18/21 04/19/21 Range/Units 04:29 06:29 Sodium 142 (135-145) mmol/L Potassium 3.9 (3.5-5.5) mmol/L Chloride 105 (96-109) mmol/L Carbon Dioxide 27.6 (21.6-31.8) mmol/L BUN 14.0 (9.0-27.0) mg/dL Creatinine 0.7 0.69 (0.6-1.5) mg/dL Glucose 85 (70-110) mg/dL Calcium 8.8 (8.7-10.3) mg/dL Calcium panel 04/18/21 Range/Units 04:29 Calcium 8.8 (8.7-10.3) mg/dL Pituitary panel 04/18/21 04/19/21 Range/Units 04:29 06:29 Sodium 142 (135-145) mmol/L Potassium 3.9 (3.5-5.5) mmol/L Chloride 105 (96-109) mmol/L Carbon Dioxide 27.6 (21.6-31.8) mmol/L BUN 14.0 (9.0-27.0) mg/dL Creatinine 0.7 0.69 (0.6-1.5) mg/dL Glucose 85 (70-110) mg/dL Calcium 8.8 (8.7-10.3) mg/dL Adrenal panel 04/18/21 04/19/21 Range/Units 04:29 06:29 Sodium 142 (135-145) mmol/L Potassium 3.9 (3.5-5.5) mmol/L Chloride 105 (96-109) mmol/L Carbon Dioxide 27.6 (21.6-31.8) mmol/L BUN 14.0 (9.0-27.0) mg/dL Creatinine 0.7 0.69 (0.6-1.5) mg/dL Glucose 85 (70-110) mg/dL Calcium 8.8 (8.7-10.3) mg/dL - Imaging Additional studies: X-ray right tibia and fibula: Soft tissue edema without acute osseous abnormality. There is no acute fracture or dislocation. Visualized osseous structures are anatomic alignment. Remote healed fractures of the distal tibia and fibula with billy fixation of the tibia seen. Mild soft tissue dystrophic calcification about the fracture site. Assessment and Plan Assessment: 1. Right lower extremity pain, venous insufficiency 2. Venous Stasis dermatitis 3. Remote history of right fracture of the distal tibia and fibula with billy 4. History of coronary artery disease 5. History of hyperlipidemia 6. History hypertension 7. COVID-19 positive Plan: Recommend compression stockings Recommend outpatient followup for further work up No indications for any acute vascular surgical intervention at this time Thank you for this consultation and allowing us take part in the plan of care of your patient during his hospital stay The impression and plan of care has been dictated as directed. I performed a history and examination of this patient, discussed the same with the dictator. I agree with the dictator's note ,documented as a scribe. Any additional findings or plans will be noted.
[2021-04-19] MEDS ORDERED: VANCOMYCIN TROUGH DUE 1 EACH MISC MISCELLANE ONE (20:00)
--- NOTE | 2021-04-19 20:21 | CONS ---
CONSULTATION DATE OF SERVICE: 04/19/2021 REASON FOR CONSULTATION: Right lower extremity cellulitis. HISTORY OF PRESENT ILLNESS: The patient is a 65-year-old male who was sent to the ER at [facility] 2 days ago by his primary care physician for evaluation of the right leg swelling and redness. The pain has been going on for about a month. The patient was previously evaluated the patient did have ultrasound of his leg that was negative for DVT and he was treated with a 10-day course of oral Keflex, without any improvement. The patient has been complaining of swelling to the leg and minimal redness, slightly warm to touch. The patient denies having any history of any trauma. The patient did have previous history of a fracture to the right leg, where he did have rods placed. The patient on presentation to the hospital was afebrile, and no fever has been recorded subsequently. The patient did have a normal white count. Blood cultures were obtained which were negative. The patient had x-rays of the tibia and fibula that reported soft tissue edema without acute osseous abnormality. The patient has been treated with vancomycin. Also evaluated by Vascular Surgery this morning with a concern for possible localized edema and no cellulitis; recommended that patient be discharged home without antibiotics by primary team. REVIEW OF SYSTEMS: Positive points have been mentioned in the HPI. Rest of the systems are negative. PAST MEDICAL HISTORY: Coronary artery disease, chest pain, angina, gastroesophageal reflux disease, hypertension, hyperlipidemia, osteoarthritis, sleep apnea. PAST SURGICAL HISTORY: PTCA with stent, right leg fracture repair. SOCIAL HISTORY: Denies smoking. Rarely drinks. No drug use. FAMILY HISTORY: No pertinent findings noticed. ALLERGIES: NO KNOWN DRUG ALLERGIES. MEDICATIONS: The patient is currently on Tylenol, Norvasc, aspirin, Lipitor, Coreg, Lovenox, hydrochlorothiazide, Cozaar, vancomycin, Pharmacy to dose. PHYSICAL EXAMINATION: Blood pressure is 145/78 with a pulse of 59, temperature 98.4. He is 95% on room air. General description is a middle-aged male lying in bed in no distress. HEENT: Examination shows no pallor or scleral icterus. Oral mucous membrane is dry. NECK: Trachea is central. No thyromegaly. LUNGS: Unlabored breathing. Clear to auscultation anteriorly. No wheeze or crackle. HEART: S1, S2. Regular rate and rhythm. ABDOMEN: Soft. No tenderness. EXTREMITIES: Right leg with minimal swelling, slightly warm. No open wound or any drainage. Neurologically the patient is awake, alert, oriented x3. Mood and affect normal. LABS: Hemoglobin is 12.1, white count 6.2, BUN of 14, creatinine 0.7. Lopez PCR is positive. DIAGNOSTIC IMPRESSION AND PLAN: Patient right leg swelling and minimal redness in this patient who has a history of previous fracture with concern for possible localized edema. Clinically not behaving as cellulitis in this patient who did not have any fever or elevated white count. PLAN: 1. Agree with compression stockings to keep the swelling down. 2. Patient advised if there is any worsening of redness, fever, or development of any fever to let me know right away. Patient has been advised to continue to follow up with vascular surgeon in the outpatient setting for this localized edema. Thank you for this consultation. MMODL / IJN: [id number] /
== END 2021-04-19 14:55 | disposition home or self-care (01) ==
LOC: EC 16:44 → INTOOBSV 18:58 → 5NMEDONC 18:58 → 4SSUR 04-18 01:43 → UNDODISIN 04-19 14:55
PROVIDERS: ADMIT Internal Medicine; ATTEND Internal Medicine
DX: R60.9 Edema, unspecified (principal); I87.2 Venous insufficiency (chronic) (peripheral); I10 Essential (primary) hypertension; E78.5 Hyperlipidemia, unspecified; G47.33 Obstructive sleep apnea (adult) (pediatric); U07.1 COVID-19; I25.10 Atherosclerotic heart disease of native coronary artery without angina pectoris; K21.9 Gastro-esophageal reflux disease without esophagitis; F41.9 Anxiety disorder, unspecified; F41.0 Panic disorder [episodic paroxysmal anxiety]; Z79.82 Long term (current) use of aspirin; Z79.899 Other long term (current) drug therapy; Z95.5 Presence of coronary angioplasty implant and graft; Z87.81 Personal history of (healed) traumatic fracture; Z80.9 Family history of malignant neoplasm, unspecified
CPT/HCPCS: 96366 ×4; 96372 ×2; 96368; 96365; 96367; 99285; 36415; 80053; 80048; 82565; 83605; 85025 ×2; 87040; 87635; 73590; G0378 ×3; J2543; J3370 ×3; J1650 ×2

== ENCOUNTER → 2022-03-26 | Outpatient (CLI) | payer BC | LOC: CPPFTMAIN 07:31 | PROVIDERS: ATTEND Internal Medicine | DX: R05.3 Chronic cough (principal) | CPT/HCPCS: 94060; 94726; 94729 ==

== ENCOUNTER → 2022-04-16 | Outpatient (CLI) | payer BC ==
--- NOTE | 2022-04-16 10:46 | XR ---
EXAMINATION TYPE: XR chest special 4+ views DATE OF EXAM: 04/16/2022 COMPARISON: NONE TECHNIQUE: PA, lateral and bilateral oblique views submitted. HISTORY: Cough FINDINGS: The lungs are clear and there is no pneumothorax, pleural effusion, or focal pneumonia. Hypertrophi c and degenerative change of the spine. Subsegmental linear changes at the right lung base. Arthropat hy of the shoulders. Atherosclerotic change aorta. IMPRESSION: 1. Subsegmental linear changes right lung base favor atelectasis over pneumonia.
== END | disposition home or self-care (01) ==
LOC: RADXRMAIN 10:06
PROVIDERS: ATTEND Otolaryngology
DX: R05.9 Cough, unspecified (principal)
CPT/HCPCS: 71048

== ENCOUNTER → 2022-07-29 | Outpatient (CLI) | payer BC ==
[2022-07-30 01:13] LABS: Basophils # (A) 0.05 X 10*3/uL (0.00-0.10); Basophils % (A) 0.8 %; Eosinophils # (A) 0.13 X 10*3/uL (0.04-0.35); Eosinophils % (A) 2.2 %; HCT 38.6 % (39.6-50.0); Immature Grans, Automated 0.2 %; Lymphocytes # (A) 1.66 X 10*3/uL (0.90-5.00); Lymphocytes % (A) 27.5 %; MCH 29.7 pg (27.0-32.0); MCHC 33.7 g/dL (32.0-37.0); MCV 88.3 fL (80.0-97.0); Mean Platelet Volume 11.4 fL (9.5-12.2); Monocytes # (A) 0.39 X 10*3/uL (0.20-1.00); Monocytes % (A) 6.5 %; NRBC Per 100 WBC 0 /100 WBCS (0.0-0.0); Neutrophils % (A) 62.8 %; Platelet Count 185 X 10*3/uL (140-440); RBC 4.37 X 10*6/uL (4.40-5.60); RDW 13.2 % (11.5-14.5); WBC 6.04 X 10*3/uL (4.50-10.00)
== END | disposition home or self-care (01) ==
LOC: LABWHC1 15:22
PROVIDERS: ATTEND Internal Medicine
DX: R05.9 Cough, unspecified (principal)
CPT/HCPCS: 36415; 82785; 85025

== ENCOUNTER → 2022-08-08 | Outpatient (CLI) | payer BC ==
--- NOTE | 2022-08-08 14:46 | US ---
EXAMINATION TYPE: US kidneys/renal and bladder DATE OF EXAM: 08/08/2022 COMPARISON: NONE CLINICAL HISTORY: 66-year-old male proteinuria R80.9. Abnormal labs. TECHNIQUE: Multiple sonographic images of the kidneys and bladder are obtained. FINDINGS: EXAM MEASUREMENTS: Right Kidney: 11.7 x 5.0 x 5.7 cm Left Kidney: 12.7 x 6.0 x 7.0 cm Right Kidney: No hydronephrosis or masses seen Left Kidney: No hydronephrosis or masses seen. Suspect a dromedary hump at the midpole. Bladder: Distended. Bladder wall trabeculation seen. Bilateral Jets seen IMPRESSION: 1. No hydronephrosis. 2. Left midpole protuberance suggesting a dromedary hump. Precautionary 6 month follow-up ultrasound to reassess this area. 3. Some bladder wall trabeculation suggests wall hypertrophy such as from BPH/chronic bladder outlet obstruction. Clinically correlate.
== END | disposition home or self-care (01) ==
LOC: RADUSWWP 07:11
PROVIDERS: ATTEND Internal Medicine
DX: R80.9 Proteinuria, unspecified (principal)
CPT/HCPCS: 76770

== ENCOUNTER 2022-08-22 08:12 | Day surgery (SDC) | payer BC ==
[2022-08-20 15:34] VITALS: BMI 38.3
[~2022-08-22 08:12] MED LIST changes: -LIDOCAINE 1% 20 ML VIAL (10MG/ML) FOR IV START INTRADERMA PRN
[2022-08-22 08:39] VITALS: RESP 16; TEMP 97.3
[2022-08-22] MEDS ORDERED: PROPOFOL 10 MG/ML 20 ML VIAL IV ONE (09:14)
--- NOTE | 2022-08-22 09:17 | P.GSHP ---
History of Present Illness H&P Date: 08/22/22 Chief Complaint: Screening colonoscopy This a 66 male presents today for screening colonoscopy. Patient denies a significant GI complaints. Past Medical History Past Medical History: Coronary Artery Disease (CAD), Chest Pain / Angina, Hyperlipidemia, Hypertension, Osteoarthritis (OA), Sleep Apnea/CPAP/BIPAP Additional Past Medical History / Comment(s): occ "heart fluttering" palpitations., hx anemia with iron transfusion., covid march 2021., no current machine for sleep apnea., hemorrhoids and occasional blood with bm., states cough-unknown cause- seen Dr Tinoco. covid 03/21 History of Any Multi-Drug Resistant Organisms: None Reported Past Surgical History: Heart Catheterization With Stent, Orthopedic Surgery Additional Past Surgical History / Comment(s): angioplasty x 2/total 3 stents, rt tibia/fibia-fx with pin, Colonoscopies Past Anesthesia/Blood Transfusion Reactions: No Reported Reaction, Motion Sickness Date of Last Stent Placement:: 07/2014 Past Psychological History: Anxiety Smoking Status: Never smoker Past Alcohol Use History: Rare Past Drug Use History: None Reported - Past Family History Brother(s) Family Medical History: Cancer Medications and Allergies Home Medications Medication Instructions Recorded Confirmed Type Aspirin [Adult Low Dose Aspirin EC] 81 mg PO DAILY 05/22/17 08/20/22 History carvediloL [Coreg] 12.5 mg PO BID 05/22/17 08/22/22 History Ferrous Sulfate [Iron (65 MG 325 mg PO DAILY 04/17/21 08/20/22 History Elemental)] Irbesartan [Avapro] 300 mg PO DAILY 04/17/21 08/22/22 History Rosuvastatin [Crestor] 20 mg PO HS 04/17/21 08/20/22 History amLODIPine [Norvasc] 10 mg PO HS 04/17/21 08/20/22 History hydroCHLOROthiazide 12.5 mg PO DAILY 04/17/21 08/20/22 History Ascorbic Acid [Vitamin C] 1,000 mg PO DAILY 08/20/22 08/20/22 History Multivit-Min/Folic/Vit K/Lycop 1 each PO DAILY 08/20/22 08/20/22 History [Men's Multivitamin Tablet] Zinc Gluconate [Zinc] 50 mg PO DAILY 08/20/22 08/20/22 History Allergies Allergy/AdvReac Type Severity Reaction Status Date / Time No Known Allergies Allergy Verified 08/20/22 15:05 Surgical - Exam Vital Signs Temp Pulse Resp BP Pulse Ox 97.3 F L 65 16 184/88 98 08/22/22 08:37 08/22/22 08:37 08/22/22 08:37 08/22/22 08:37 08/22/22 08:37 - General well developed, well nourished, no distress - Eyes PERRL - ENT normal pinna, normal nares - Neck no masses - Respiratory normal expansion - Cardiovascular Rhythm: regular - Abdomen Abdomen: soft, non tender Assessment and Plan Assessment: We'll perform screening colonoscopy
--- NOTE | 2022-08-22 09:27 | P.OP ---
Date of Procedure: 08/22/22 Preoperative Diagnosis: Screening colonoscopy Postoperative Diagnosis: External hemorrhoids Diverticulosis Procedure(s) Performed: Colonoscopy Anesthesia: MAC Surgeon: Cruz Uribe Pathology: none sent Condition: stable Disposition: PACU Description of Procedure: The patient's placed on the endoscopy table in the lateral position. He received IV sedation. Digital rectal exam was performed. This revealed external hemorrhoids. Flexible colonoscope was then placed patient anus and passed throughout the entire colon. Ileocecal valve was visually is. The cecum, ascending and transverse colon appeared normal. The descending and sigmoid colon had a few scattered diverticula. Scope was then brought back the rectum and this appeared normal. Scope withdrawn for patient.
[2022-08-22 09:50] VITALS: BP 118/71; PULSE 62
== END 2022-08-22 10:05 ==
LOC: ORWHC2ENDO 08:12
PROVIDERS: ATTEND Surgery
DX: Z12.11 Encounter for screening for malignant neoplasm of colon (principal); K64.4 Residual hemorrhoidal skin tags; K57.30 Diverticulosis of large intestine without perforation or abscess without bleeding; I25.10 Atherosclerotic heart disease of native coronary artery without angina pectoris; E78.5 Hyperlipidemia, unspecified; I10 Essential (primary) hypertension; M19.90 Unspecified osteoarthritis, unspecified site; G47.33 Obstructive sleep apnea (adult) (pediatric); D64.9 Anemia, unspecified; I49.9 Cardiac arrhythmia, unspecified; Z86.59 Personal history of other mental and behavioral disorders; Z85.9 Personal history of malignant neoplasm, unspecified; Z79.82 Long term (current) use of aspirin; Z79.899 Other long term (current) drug therapy; Z79.01 Long term (current) use of anticoagulants; F41.9 Anxiety disorder, unspecified; Z86.16 Personal history of COVID-19; Z87.81 Personal history of (healed) traumatic fracture
CPT/HCPCS: 45378; J2704

== ENCOUNTER → 2023-03-07 | Outpatient (CLI) | payer MEDICARE ==
--- NOTE | 2023-03-07 14:10 | US ---
EXAMINATION TYPE: US carotid duplex BILAT DATE OF EXAM: 03/07/2023 COMPARISON: NONE CLINICAL HISTORY: I65.23 CAROTID STENOSIS. Numbness bilateral arms. Weakness. Dizziness TECHNIQUE: Carotid duplex ultrasound examination. Indirect Doppler criteria was utilized. FINDINGS: EXAM MEASUREMENTS: RIGHT: Peak Systolic Velocity (PSV) cm/sec ----- Right CCA: 99.6 ----- Right ICA: 107 ----- Right ECA: 138 ICA/CCA ratio: 1.07 RIGHT: End Diastole cm/sec ----- Right CCA: 22.0 ----- Right ICA: 27.8 ----- Right ECA: 19.0 LEFT: Peak Systolic Velocity (PSV) cm/sec ----- Left CCA: 94.3 ----- Left ICA: 119 ----- Left ECA: 131 ICA/CCA ratio: 1.26 LEFT: End Diastole cm/sec ----- Left CCA: 25.4 ----- Left ICA: 29.5 ----- Left ECA: 24.6 VERTEBRALS (direction of flow): Right Vertebral: Antegrade Left Vertebral: Antegrade Rhythm: Normal TELECOM SPECIALIST NOTES: Mild plaque bilateral bifurcations. No evidence of significant stenosis IMPRESSION: No ultrasound evidence for hemodynamically significant stenosis within bilateral internal carotid art eries. Criteria for Assigning % of Stenosis / Diameter reduction (Estimation based on the indirect measurements of the internal carotid artery velocities (ICA PSV). 1. Normal (no stenosis)=ICA PSV < 125 cm/s: ratio < 2.0: ICA EDV<40 cm/s. 2. Less than 50% stenosis=ICA PSV < 125 cm/s: ratio < 2.0: ICA EDV<40 cm/s. 3. 50 to 69% stenosis=ICA PSV of 125 to 230 cm/s: ration 2.0 ? 4.0: ICA EDV 40-100 cm/s. 4. Greater than 70% stenosis to near occlusion= ICA PSV > 230 cm/s: ratio > 4.0: ICA EDV > 100 cm/s. 5. Near occlusion= ICA PSV velocities may be low or undetectable: variable ratio and ICA EDV. 6. Total occlusion=unable to detect flow.
== END | disposition home or self-care (01) ==
LOC: RADUSWWP 13:22
PROVIDERS: ATTEND Internal Medicine
DX: I65.23 Occlusion and stenosis of bilateral carotid arteries (principal)
CPT/HCPCS: 93880

== ENCOUNTER → 2024-04-07 | Outpatient (CLI) | payer MEDICARE ==
[2024-04-07 15:36] LABS: African American GFR (CKD) >90 (>60 ml/min/1.73 sqM); Blood Urea Nitrogen 16 mg/dL (9-20); Non-African American GFR(CKD) >90 (>60 ml/min/1.73 sqM)
--- NOTE | 2024-04-07 17:32 | CT ---
EXAMINATION TYPE: CT ChestAbdPelvis w con CT DLP: 1757 mGycm, Automated exposure control for dose reduction was used. DATE OF EXAM: 04/07/2024 5:08 PM COMPARISON: None. CLINICAL INDICATION:Male, 68 years old with history of D64.9 ANEMIA, UNSPECIFIED; PHH, Anemia Technique: CT ChestAbdPelvis w con; Multiple axial images were obtained. Two-dimensional coronal and sagittal reconstructions were obtained. Contrast used:100 mL of Isovue 300 with IV Contrast, Oral contrast used: with Oral Contrast Findings: CHEST: LUNGS/ PLEURA: No evidence focal consolidation, pneumothorax or pleural effusion. Scattered pulmonary nodules examples include right lower lobe 5 mm image 30 series 3, left upper lobe 4 mm image 22, AIRWAY: Patent and unremarkable. HEART: The heart is enlarged for size. There is coronary artery atherosclerosis. MEDIASTINUM: No gross evidence of adenopathy. VASCULATURE: No aortic aneurysm. MUSCULOSKELETAL: No acute osseous abnormalities. SOFT TISSUES/LYMPH NODES: Unremarkable. LOWER NECK: No significant findings. ABDOMEN: ABDOMEN LIVER: Diffusely hypoattenuating parenchyma. GALLBLADDER AND BILE DUCTS: Multiple calcified gallstones present. PANCREAS: Unremarkable. SPLEEN: Unremarkable. ADRENAL GLANDS: Unremarkable. KIDNEYS AND URETERS: No evidence of hydronephrosis or renal calculus. The ureters are unremarkable. PELVIS BLADDER: Unremarkable REPRODUCTIVE: Fatty changes in the inguinal canals. ABDOMEN & PELVIS STOMACH AND BOWEL: No evidence of bowel obstruction. PERITONEUM: No evidence of pneumoperitoneum or free fluid. VASCULATURE: Mild atherosclerotic calcifications are present throughout the abdominal aorta and its b ranches. MUSCULOSKELETAL: No acute osseous abnormalities. Moderate disc degeneration changes are present throu ghout the thoracolumbar spine. LYMPH NODES: No gross evidence for lymphadenopathy. SOFT TISSUE/ABDOMINAL WALL: Unremarkable IMPRESSION: 1. No evidence for acute thoracic or abdominal process. 2. Cholelithiasis. 3. Cardiomegaly. 4. Hepatic steatosis. 5. Moderate coronary artery atherosclerosis. 6. Scattered sub-6 mm pulmonary nodules. Follow-up CT chest in one year recommended to ensure stabil ity. Follow up recommendations for incidental pulmonary nodules are per Fleischner?s [employer] sociation or [employer].
== END | disposition home or self-care (01) ==
LOC: RADCTMAIN 14:43
PROVIDERS: ATTEND Internal Medicine
DX: D64.9 Anemia, unspecified (principal); K80.20 Calculus of gallbladder without cholecystitis without obstruction; I51.7 Cardiomegaly; K76.0 Fatty (change of) liver, not elsewhere classified; I25.10 Atherosclerotic heart disease of native coronary artery without angina pectoris; R91.8 Other nonspecific abnormal finding of lung field
CPT/HCPCS: 82565; 84520; 71260; 74177; 36415; Q9967

== ENCOUNTER → 2024-12-29 | Outpatient (CLI) | payer MEDICARE ==
--- NOTE | 2024-12-29 08:12 | US ---
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 TECHNIQUE: Grayscale, color Doppler and spectral Doppler evaluation of the bilateral carotid systems and vertebral arteries. Indirect Doppler criteria was utilized. FINDINGS: EXAM MEASUREMENTS: RIGHT: Peak Systolic Velocity (PSV) cm/sec ----- Right CCA: 128 ----- Right ICA: 112 ----- Right ECA: 119 ICA/CCA ratio: 0.9 RIGHT: End Diastole cm/sec ----- Right CCA: 28.6 ----- Right ICA: 33.4 ----- Right ECA: 21.4 LEFT: Peak Systolic Velocity (PSV) cm/sec ----- Left CCA: 154 ----- Left ICA: 139 ----- Left ECA: 125 ICA/CCA ratio: 0.9 LEFT: End Diastole cm/sec ----- Left CCA: 28.7 ----- Left ICA: 30.8 ----- Left ECA: 16.8 VERTEBRALS (direction of flow): Right Vertebral: Antegrade Left Vertebral: Antegrade Rhythm: Normal CONDUCTOR SLEEPING CAR NOTES: Plaque seen bilaterally, Elevated velocities due to vessel tortuosity No significant stenosis seen Color Doppler imaging shows patency with blood flow throughout the carotid artery. Spectral waveforms are within normal limits. IMPRESSION: Right: No hemodynamically significant stenosis. Left: No hemodynamically significant stenosis. Criteria for Assigning % of Stenosis / Diameter reduction (Estimation based on the indirect measurements of the internal carotid artery velocities (ICA PSV). 1. Normal (no stenosis)=ICA PSV < 125 cm/s: ratio < 2.0: ICA EDV<40 cm/s. 2. Less than 50% stenosis=ICA PSV < 125 cm/s: ratio < 2.0: ICA EDV<40 cm/s. 3. 50 to 69% stenosis=ICA PSV of 125 to 230 cm/s: ration 2.0 ? 4.0: ICA EDV 40-100 cm/s. 4. Greater than 70% stenosis to near occlusion= ICA PSV > 230 cm/s: ratio > 4.0: ICA EDV > 100 cm/s. 5. Near occlusion= ICA PSV velocities may be low or undetectable: variable ratio and ICA EDV. 6. Total occlusion=unable to detect flow. [facility], , 12/29/2024 8:09 AM
== END | disposition home or self-care (01) ==
LOC: RADUSWWP 07:12
PROVIDERS: ATTEND Internal Medicine
DX: I65.23 Occlusion and stenosis of bilateral carotid arteries (principal)
CPT/HCPCS: 93880

== ENCOUNTER → 2025-03-30 | Outpatient (CLI) | payer MEDICARE ==
[2025-03-30 16:00] LABS: % Iron Saturation 8.8 (15.00-50.00); Total Protein 7.5 g/dL (6.2-8.2)
== END | disposition home or self-care (01) ==
LOC: LABWHC1 08:37
PROVIDERS: ATTEND Internal Medicine
DX: R79.9 Abnormal finding of blood chemistry, unspecified (principal)
CPT/HCPCS: 36415; 82607; 82728; 82746; 83010; 83540; 83550; 84155

== ENCOUNTER 2025-06-14 09:39 | Observation (INO) | payer MEDICARE ==
--- NOTE | 2025-06-14 10:13 | ED ---
General Adult HPI - General Chief complaint: Dizziness Stated complaint: Syncope Time Seen by Provider: 06/14/25 09:53 Source: patient, RN notes reviewed, old records reviewed Mode of arrival: ambulatory Limitations: no limitations - History of Present Illness Initial comments: 69-year-old male history of hypertension presenting for evaluation of lighth eadedness. Patient felt like he was going to pass out. Patient denied associated chest pain. He does report a 3-week history of cough. He also reports pain in his upper back which is worse with cough or deep inspiration. He is scheduled to see his primary care regarding this. He denies lower e xtremity pain or swelling. Denies vomiting. States he has had about a 10 pound weight loss recently. - Related Data Home Medications Medication Instructions Recorded Confirmed Aspirin [Adult Low Dose Aspirin EC] 81 mg PO HS 05/22/17 06/14/25 carvediloL [Coreg] 12.5 mg PO BID 05/22/17 06/14/25 Ferrous Sulfate [Iron (65 MG 325 mg PO HS 04/17/21 06/14/25 Elemental)] Rosuvastatin [Crestor] 20 mg PO HS 04/17/21 06/14/25 amLODIPine [Norvasc] 10 mg PO HS 04/17/21 06/14/25 Ascorbic Acid [Vitamin C] 1,000 mg PO DAILY 08/20/22 06/14/25 Multivit-Min/Folic/Vit K/Lycop 1 tab PO DAILY 08/20/22 06/14/25 [Men's Multivitamin Tablet] Zinc Gluconate [Zinc] 50 mg PO DAILY 08/20/22 06/14/25 Cholecalciferol (Vitamin D3) 50 mcg PO DAILY 06/14/25 06/14/25 [Vitamin D3 (50 Mcg = 2000 Iu)] Empagliflozin [Jardiance] 10 mg PO HS 06/14/25 06/14/25 Fexofenadine HCl [Ratna Allergy] 180 mg PO DAILY 06/14/25 06/14/25 Irbesartan/Hydrochlorothiazide 1 tab PO DAILY 06/14/25 06/14/25 [Irbesartan-Hctz 300-12.5 mg Tb] Montelukast [Singulair] 10 mg PO HS 06/14/25 06/14/25 Naproxen Sodium [Aleve] 440 mg PO BID PRN 06/14/25 06/14/25 Spironolactone [Aldactone] 25 mg PO DAILY 06/14/25 06/14/25 Allergies Allergy/AdvReac Type Severity Reaction Status Date / Time No Known Allergies Allergy Verified 06/14/25 11:20 Review of Systems ROS Statement: Those systems with pertinent positive or pertinent negative responses have been documented in the HPI. ROS Other: All systems not noted in ROS Statement are negative. Past Medical History Past Medical History: Coronary Artery Disease (CAD), Chest Pain / Angina, Hyperlipidemia, Hypertension, Osteoarthritis (OA), Sleep Apnea/CPAP/BIPAP Additional Past Medical History / Comment(s): occ "heart fluttering" , occ palpitations, anemia- had iron infusion 1 week ago for Hgb 6.9- Dr LORRIE Waller canceled cardiac procedure and wanted pt to have EGD/Colonoscopy first. covid 19 03/21 History of Any Multi-Drug Resistant Organisms: None Reported Past Surgical History: Heart Catheterization With Stent, Orthopedic Surgery Additional Past Surgical History / Comment(s): angioplasty x 2/total 3 stents, rt tibia/fibia-fx with pin, Past Anesthesia/Blood Transfusion Reactions: Motion Sickness Date of Last Stent Placement:: 07/2014 Past Psychological History: Anxiety, Panic Disorder Smoking Status: Never smoker Past Alcohol Use History: Rare Past Drug Use History: None Reported - Past Family History Brother(s) Family Medical History: Cancer General Exam Limitations: no limitations General appearance: alert, in no apparent distress Head exam: Present: atraumatic, normocephalic Eye exam: Present: normal appearance, PERRL ENT exam: Present: mucous membranes dry Neck exam: Present: normal inspection Respiratory exam: Present: normal lung sounds bilaterally. Absent: respiratory distress, wheezes Cardiovascular Exam: Present: regular rate, normal rhythm GI/Abdominal exam: Present: soft. Absent: distended, tenderness, guarding, rebound Extremities exam: Present: normal inspection, normal capillary refill Neurological exam: Present: alert, oriented X3 Psychiatric exam: Present: normal affect, normal mood Skin exam: Present: warm, dry, intact. Absent: cyanosis, diaphoretic Course Vital Signs 06/14/25 06/14/25 06/14/25 09:47 10:30 10:34 Temperature 97.8 F 97.9 F Pulse Rate 58 L 61 59 L Respiratory 18 16 18 Rate Blood Pressure 97/55 103/55 O2 Sat by Pulse 98 96 Oximetry 06/14/25 10:47 Temperature Pulse Rate 57 L Respiratory 18 Rate Blood Pressure 112/54 O2 Sat by Pulse 96 Oximetry Medical Decision Making - Medical Decision Making Was pt. sent in by a medical professional or institution (NELLA Thornton, MANAGER DISH, urgent care, hospital, or senior living...) When possible be specific @ -No Did you speak to anyone other than the patient for history (EMS, parent, family, police, friend...)? What history was obtained from this source @ -No Did you review nursing and triage notes (agree or disagree)? Why? @ -I reviewed and agree with nursing and triage notes Were old charts reviewed (outside hosp., previous admission, EMS record, old EKG, old radiological studies, urgent care reports/EKG's, senior living records)? Report findings @ -No old charts were reviewed Differential Syncope: Valvular disease, hypertrophic cardiomyopathy, pulmonary embolism, tamponade, tachycardia, bradycardia, CO, hypovolemia, hemorrhage, dissection, anemia, intracranial hemorrhage, seizure, hypoglycemia, carbon monoxide poisoning, this is not meant to be an all-inclusive list. EKG interpreted by me (3pts min.). @ -Sinus bradycardia rate of 57, left bundle branch block, IL interval 181, QRS duration 165, QTc 432 no old for comparison. X-rays interpreted by me (1pt min.). @ -Chest x-ray negative for acute cardiopulmonary findings. CT interpreted by me (1pt min.). @ -None done U/S interpreted by me (1pt. min.). @ -None done What testing was considered but not performed or refused? (CT, X-rays, U/S, labs)? Why? @ -None What meds were considered but not given or refused? Why? @ -None Did you discuss the management of the patient with other professionals ( professionals i.e. NELLA Thornton, MANAGER DISH, lab, RT, psych nurse, social services assistant, grain elevator superintendent, teacher, air crew officer, onsite case manager)? Give summary @ Dr. Millan, admit Was smoking cessation discussed for >3mins.? @ -No Was critical care preformed (if so, how long)? @ -No Were there social determinants of health that impacted care today? How? (Homelessness, low income, unemployed, alcoholism, drug addiction, trans portation, low edu. Level, literacy, decrease access to med. care, fci, rehab)? @ -No Was there de-escalation of care discussed even if they declined (Discuss DNR or withdrawal of care, Hospice)? DNR status @ -No What co-morbidities impacted this encounter? (DM, HTN, Smoking, COPD, CAD, Cancer, CVA, ARF, Chemo, Hep., AIDS, mental health diagnosis, sleep apnea, morbid obesity)? @ -Hypertension, remote episode of anemia Was patient admitted / discharged? Hospital course, mention meds given and route, prescriptions, significant lab abnormalities, going to OR and other pertinent info. @ -69-year-old male with near syncopal episode. Patient has initial blood pressure in the 90s. This does respond to fluids. He has complained of intermittent bright red rectal bleeding which he attributes to hemorrhoids over the past at least 1 month. He had an outpatient lab draw at his primary care office 4 days ago and his hemoglobin was noted to be 8 at that time. His hemoglobin is again 8 today. He states that he feels lightheaded when he stands. He is also had some fatigue as well. The remainder of his testing in the emergency department is unremarkable. I did discuss case with his primary care provider Dr. Millan, requests admission and consultation to gastroenterology for anemia. Undiagnosed new problem with uncertain prognosis? @ -No Drug Therapy requiring intensive monitoring for toxicity (Heparin, Nitro, Insulin, Cardizem)? @ -No Were any procedures done? @ -No Diagnosis/symptom? @ -Anemia, near syncope Acute, or Chronic, or Acute on Chronic? @ -[Acute Uncomplicated (without systemic symptoms) or Complicated (systemic symptoms)? @Complicated Side effects of treatment? @ -No Exacerbation, Progression, or Severe Exacerbation? @ -No Poses a threat to life or bodily function? How? (Chest pain, USA, CO, pneumonia, PE, COPD, DKA, ARF, appy, cholecystitis, CVA, Diverticulitis, Homicidal, Suicidal, threat to staff... and all critical care pts) @ -Yes, acute blood loss anemia, hemorrhagic shock, arrhythmia - Lab Data Result diagrams: 06/14/25 10:20 06/14/25 10:20 Lab Results 06/14/25 06/14/2506/14/25 Range/Units 10:20 10:20 10:20 WBC 7.34 (4.50-10.00) 10*3/uL RBC 2.83 L (4.40-5.60) 10*6/uL Hgb 8.0 L (13.0-17.0) g/dL Hct 25.0 L (39.6-50.0) % MCV 88.3 (80.0-97.0) fL MCH 28.3 (27.0-32.0) pg MCHC 32.0 (32.0-37.0) g/dL Plt Count 235 (140-440) 10*3/uL MPV 9.6 (9.5-12.2) fL Immature Gran % (Auto) 0.4 % Neutrophils % 72.5 % Lymphocytes % 16.9 % Monocytes % 7.5 % Eosinophils % 2.0 % Basophils % 0.7 % Immature Gran # 0.03 (0.00-0.04) 10*3/uL Neutrophils # 5.32 (1.80-7.70) 10*3/uL Lymphocytes # 1.24 (0.90-5.00) 10*3/uL Monocytes # 0.55 (0.20-1.00) 10*3/uL Eosinophils # 0.15 (0.04-0.35) 10*3/uL Basophils # 0.05 (0.00-0.10) 10*3/uL PT 11.3 (10.0-12.5) sec INR 1.0 (<1.2) APTT 21.4 L (22.0-30.0) sec D-Dimer 0.37 (<0.60) mg/L FEU Sodium 136 L (137-145) mmol/L Potassium 4.4 (3.5-5.1) mmol/L Chloride 102 (98-107) mmol/L Carbon Dioxide 25 (22-30) mmol/L Anion Gap 9 mmol/L BUN 18 (9-20) mg/dL Creatinine 1.07 (0.66-1.25) mg/dL Est GFR (CKD-EPI)AfAm 83 (>60 ml/min/1.73 sqM) Est GFR (CKD-EPI)NonAf 72 (>60 ml/min/1.73 sqM) Glucose 133 H (74-99) mg/dL Calcium 9.4 (8.4-10.2) mg/dL Magnesium 2.0 (1.6-2.3) mg/dL Total Bilirubin 0.3 (0.2-1.3) mg/dL AST 20 (17-59) U/L ALT 16 (4-49) U/L Alkaline Phosphatase 61 (38-126) U/L Troponin I (0.000-0.034) ng/mL Total Protein 6.9 (6.3-8.2) g/dL Albumin 4.3 (3.5-5.0) g/dL Urine Color Urine Appearance (Clear) Urine pH (5.0-8.0) Ur Specific [place] (1.001-1.035) Urine Protein (Negative) Urine Glucose (UA) (Negative) Urine Ketones (Negative) Urine Blood (Negative) Urine Nitrite (Negative) Urine Bilirubin (Negative) Urine Urobilinogen (<2.0) mg/dL Ur Leukocyte Esterase (Negative) 06/14/25 06/14/25 Range/Units 10:20 12:15 WBC (4.50-10.00) 10*3/uL RBC (4.40-5.60) 10*6/uL Hgb (13.0-17.0) g/dL Hct (39.6-50.0) % MCV (80.0-97.0) fL MCH (27.0-32.0) pg MCHC (32.0-37.0) g/dL Plt Count (140-440) 10*3/uL MPV (9.5-12.2) fL Immature Gran % (Auto) % Neutrophils % % Lymphocytes % % Monocytes % % Eosinophils % % Basophils % % Immature Gran # (0.00-0.04) 10*3/uL Neutrophils # (1.80-7.70) 10*3/uL Lymphocytes # (0.90-5.00) 10*3/uL Monocytes # (0.20-1.00) 10*3/uL Eosinophils # (0.04-0.35) 10*3/uL Basophils # (0.00-0.10) 10*3/uL PT (10.0-12.5) sec INR (<1.2) APTT (22.0-30.0) sec D-Dimer (<0.60) mg/L FEU Sodium (137-145) mmol/L Potassium (3.5-5.1) mmol/L Chloride (98-107) mmol/L Carbon Dioxide (22-30) mmol/L Anion Gap mmol/L BUN (9-20) mg/dL Creatinine (0.66-1.25) mg/dL Est GFR (CKD-EPI)AfAm (>60 ml/min/1.73 sqM) Est GFR (CKD-EPI)NonAf (>60 ml/min/1.73 sqM) Glucose (74-99) mg/dL Calcium (8.4-10.2) mg/dL Magnesium (1.6-2.3) mg/dL Total Bilirubin (0.2-1.3) mg/dL AST (17-59) U/L ALT (4-49) U/L Alkaline Phosphatase (38-126) U/L Troponin I <0.012 (0.000-0.034) ng/mL Total Protein (6.3-8.2) g/dL Albumin (3.5-5.0) g/dL Urine Color Colorless Urine Appearance Clear (Clear) Urine pH 5.0 (5.0-8.0) Ur Specific [place] 1.018 (1.001-1.035) Urine Protein Negative (Negative) Urine Glucose (UA) 4+ H (Negative) Urine Ketones Negative (Negative) Urine Blood Negative (Negative) Urine Nitrite Negative (Negative) Urine Bilirubin Negative (Negative) Urine Urobilinogen <2.0 (<2.0) mg/dL Ur Leukocyte Esterase Negative (Negative) Disposition Clinical Impression: Anemia, Orthostatic hypotension Disposition: ADMITTED IP TO THIS [facility] Condition: Stable Is patient prescribed a controlled substance at d/c from ED?: No Referrals: Mata Millan MD [Primary Care Provider] - 1-2 days Time of Disposition: 12:33
[2025-06-14 10:26] LABS: Basophils # (A) 0.05 10*3/uL (0.00-0.10); Basophils % (A) 0.7 %; Eosinophils # (A) 0.15 10*3/uL (0.04-0.35); Eosinophils % (A) 2.0 %; HCT 25.0 % (39.6-50.0); HGB 8.0 g/dL (13.0-17.0); Lymphocytes # (A) 1.24 10*3/uL (0.90-5.00); Lymphocytes % (A) 16.9 %; MCH 28.3 pg (27.0-32.0); MCHC 32.0 g/dL (32.0-37.0); MCV 88.3 fL (80.0-97.0); Monocytes # (A) 0.55 10*3/uL (0.20-1.00); Monocytes % (A) 7.5 %; Neutrophils # (A) 5.32 10*3/uL (1.80-7.70); Neutrophils % (A) 72.5 %; Platelet Count 235 10*3/uL (140-440); RBC 2.83 10*6/uL (4.40-5.60); RDW 14.2 % (11.5-14.5); WBC 7.34 10*3/uL (4.50-10.00)
[2025-06-14 10:36] LABS: ALT 16 U/L (4-49); AST 20 U/L (17-59); African American GFR (CKD) 83 (>60 ml/min/1.73 sqM); Albumin 4.3 g/dL (3.5-5.0); Alkaline Phosphatase 61 U/L (38-126); Anion Gap 9 mmol/L; Blood Urea Nitrogen 18 mg/dL (9-20); Calcium 9.4 mg/dL (8.4-10.2); Carbon Dioxide 25 mmol/L (22-30); Chloride 102 mmol/L (98-107); Glucose 133 mg/dL (74-99); Magnesium 2.0 mg/dL (1.6-2.3); Non-African American GFR(CKD) 72 (>60 ml/min/1.73 sqM); Potassium 4.4 mmol/L (3.5-5.1); Sodium 136 mmol/L (137-145); Total Protein 6.9 g/dL (6.3-8.2)
[2025-06-14] MEDS: SODIUM CHLORIDE 0.9% 1,000 ML IV STA (10:43)
[2025-06-14 10:48] LABS: INR 1.0 (<1.2); Partial Thromboplastin Time 21.4 sec (22.0-30.0); Prothrombin Time 11.3 sec (10.0-12.5)
--- NOTE | 2025-06-14 11:10 | XR ---
EXAMINATION TYPE: XR chest 2V DATE OF EXAM: 06/14/2025 10:42 AM COMPARISON: Chest radiographs from 07/14/2013 CLINICAL INDICATION: Male, 69 years old with history of syncope; TECHNIQUE: XR chest 2V Frontal and lateral views of the chest. FINDINGS: Lungs/Pleura: There is no evidence of pleural effusion, focal consolidation, or pneumothorax. Pulmonary vascularity: Unremarkable. Heart/mediastinum: Cardiomediastinal silhouette is unremarkable. Musculoskeletal: No acute osseous pathology. IMPRESSION: No acute cardiopulmonary disease/process. [facility], , 06/14/2025 11:07 AM
[2025-06-14 12:29] LABS: Bilirubin,Urine Negative (Negative); Blood,Urine Negative (Negative); Color,Urine Colorless; Glucose,Urine (UA) 4+ (Negative); Ketones,Urine Negative (Negative); Leukocyte Esterase,Urine Negative (Negative); Nitrite,Urine Negative (Negative); PH, Urine 5.0 (5.0-8.0); Protein,Urine Negative (Negative); Specific Gravity,Urine 1.018 (1.001-1.035); Urobilinogen,Urine <2.0 mg/dL (<2.0)
[2025-06-14] MEDS ORDERED: NALOXONE 0.4 MG/ML 1 ML VIAL IV PRN (12:29)
[2025-06-14] MEDS ORDERED: ACETAMINOPHEN TAB 325 MG TAB PO PRN (12:29)
[2025-06-14] MEDS: PANTOPRAZOLE 40 MG/10 ML VIAL IVP SCH (12:42)
[2025-06-14] MEDS: SODIUM CHLORIDE 0.9% 1,000 ML IV SCH (12:44)
--- NOTE | 2025-06-14 14:40 | P.CONS ---
History of Present Illness - Reason for Consult Consult date: 06/14/25 Anemia Requesting physician: Kurt Mejia - Chief Complaint Dizziness - History of Present Illness This is a pleasant 69-year-old male with a past medical history of iron deficiency anemia who has required iron infusions in the past, coronary artery disease, hyperlipidemia, hypertension, obesity and sleep apnea who presented to the emergency department today with complaints of dizziness and lightheadedness that was occurring this morning and has actually been ongoing off-and-on for the last month especially in the mornings. Patient also states that he has been having blood in the toilet with bowel movement usually most mornings. He does have a history of hemorrhoids and states that he was having quite a bit of bleeding that has slowed down over the last week. Patient had blood work done showing normocytic normochromic anemia with a hemoglobin of 8.0. He denies any NSAID use and no anticoagulation. He had a colonoscopy done in [address] Uribe with findings of external hemorrhoids and diverticulosis. Prior to that he had a workup in 2016 for anemia where he had an upper endoscopy and colonoscopy with Dr. Armstrong with the upper endoscopy finding very small sliding hiatal hernia with no obvious esophagitis or complicated reflux disease. Mild antral gastritis and mild duodenitis with no ulcers or active bleeding. Colonoscopy revealed internal hemorrhoids otherwise exam of the colon to the cecum within normal limits. Patient denies any abdominal pain, nausea or vomiting. However has reported some weight loss over the last menstruation as well. Review of Systems REVIEW OF SYSTEMS: CARDIOPULMONARY: No chest pain or shortness of breath. Gastrointestinal: No abdominal pain. No nausea or vomiting. No hematemesis, coffee-ground emesis. Rectal bleeding and blood in toilet with bowel movements. GENITOURINARY: No dysuria or hematuria. MUSCULOSKELETAL: Reports normal range of motion. SKIN: No rashes. No jaundice. ENDOCRINE: No chills, fevers. No excessive weight gain or loss. No polydipsia or polyuria. PSYCHIATRIC: Unremarkable. NEUROLOGY: No change in mental status. Denies headache, confirms dizziness and lightheadedness. ENT: Vision unremarkable. CONSTITUTIONAL: Recent weight loss. No fever, chills, night sweats. Past Medical History Past Medical History: Coronary Artery Disease (CAD), Chest Pain / Angina, Hyperlipidemia, Hypertension, Osteoarthritis (OA), Sleep Apnea/CPAP/BIPAP Additional Past Medical History / Comment(s): occ "heart fluttering" , occ palpitations, anemia- had iron infusion 1 week ago for Hgb 6.9- Dr LORRIE Waller canceled cardiac procedure and wanted pt to have EGD/Colonoscopy first. covid 19 03/21 History of Any Multi-Drug Resistant Organisms: None Reported Past Surgical History: Heart Catheterization With Stent, Orthopedic Surgery Additional Past Surgical History / Comment(s): angioplasty x 2/total 3 stents, rt tibia/fibia-fx with pin, Past Anesthesia/Blood Transfusion Reactions: Motion Sickness Date of Last Stent Placement:: 07/2014 Past Psychological History: Anxiety, Panic Disorder Smoking Status: Never smoker Past Alcohol Use History: Rare Past Drug Use History: None Reported - Past Family History Brother(s) Family Medical History: Cancer Medications and Allergies Home Medications Medication Instructions Recorded Confirmed Type Aspirin [Adult Low Dose Aspirin EC] 81 mg PO HS 05/22/17 06/14/25 History carvediloL [Coreg] 12.5 mg PO BID 05/22/17 06/14/25 History Ferrous Sulfate [Iron (65 MG 325 mg PO HS 04/17/21 06/14/25 History Elemental)] Rosuvastatin [Crestor] 20 mg PO HS 04/17/21 06/14/25 History amLODIPine [Norvasc] 10 mg PO HS 04/17/21 06/14/25 History Ascorbic Acid [Vitamin C] 1,000 mg PO DAILY 08/20/22 06/14/25 History Multivit-Min/Folic/Vit K/Lycop 1 tab PO DAILY 08/20/22 06/14/25 History [Men's Multivitamin Tablet] Zinc Gluconate [Zinc] 50 mg PO DAILY 08/20/22 06/14/25 History Cholecalciferol (Vitamin D3) 50 mcg PO DAILY 06/14/25 06/14/25 History [Vitamin D3 (50 Mcg = 2000 Iu)] Empagliflozin [Jardiance] 10 mg PO HS 06/14/25 06/14/25 History Fexofenadine HCl [Ratna Allergy] 180 mg PO DAILY 06/14/25 06/14/25 History Irbesartan/Hydrochlorothiazide 1 tab PO DAILY 06/14/25 06/14/25 History [Irbesartan-Hctz 300-12.5 mg Tb] Montelukast [Singulair] 10 mg PO HS 06/14/25 06/14/25 History Naproxen Sodium [Aleve] 440 mg PO BID PRN 06/14/25 06/14/25 History Spironolactone [Aldactone] 25 mg PO DAILY 06/14/25 06/14/25 History Allergies Allergy/AdvReac Type Severity Reaction Status Date / Time No Known Allergies Allergy Verified 06/14/25 11:20 Physical Exam Vitals: Vital Signs Temp Pulse Resp BP Pulse Ox 06/14/25 10:47 57 L 18 112/54 96 06/14/25 10:34 97.9 F 59 L 18 96 06/14/25 10:30 61 16 103/55 06/14/25 09:47 97.8 F 58 L 18 97/55 98 Intake and Output 06/13/25 06/14/25 06/14/25 22:59 06:59 14:59 Other: Weight 106.594 kg General appearance: The patient is alert, oriented, appears in no acute distress. HET: Head is normocephalic and atraumatic. Conjunctiva pink. Sclera anicteric. Neck: Supple without lymphadenopathy. Trachea midline. Heart: Regular. Lungs: Equal expansion, normal respiratory effort. Abdomen: Soft, nontender, nondistended. Skin: No rashes. No jaundice. Extremities: Normal skin color and turgor. No pedal edema. Neurological: No focal deficits. Alert and oriented x3. Results CBC & Chem 7: 06/14/25 10:20 06/14/25 10:20 Labs: Abnormal Lab Results - Last 24 Hours (Table) 06/14/25 06/14/25 06/14/25 Range/Units 10:20 10:20 10:20 RBC 2.83 L (4.40-5.60) 10*6/uL Hgb 8.0 L (13.0-17.0) g/dL Hct 25.0 L (39.6-50.0) % APTT 21.4 L (22.0-30.0) sec Sodium 136 L (137-145) mmol/L Glucose 133 H (74-99) mg/dL Urine Glucose (UA) (Negative) 06/14/25 Range/Units 12:15 RBC (4.40-5.60) 10*6/uL Hgb (13.0-17.0) g/dL Hct (39.6-50.0) % APTT (22.0-30.0) sec Sodium (137-145) mmol/L Glucose (74-99) mg/dL Urine Glucose (UA) 4+ H (Negative) Assessment and Plan (1) Anemia Narrative/Plan: 69-year-old male with a history of iron deficiency anemia requiring iron infusio ns in the past presenting with symptomatic anemia with lightheadedness and dizziness also confirms that he has hemorrhoids and has been having quite a bit of bleeding which is normal for him with bowel movements in the mornings although has subsided some over the last week. He has had previous workup for anemia with no active bleeding noted. Recent blood work done in March of this year did show an iron deficiency anemia with low ferritin. Need to consider possible GI source for blood loss. Patient agreeable to proceed with upper endoscopy and colonoscopy for direct visualization. Current Visit: Yes Status: Acute Code(s): D64.9 - ANEMIA, UNSPECIFIED SNOMED Code(s): 548615343 (2) Rectal bleeding Current Visit: Yes Status: Acute Code(s): K62.5 - HEMORRHAGE OF ANUS AND RECTUM SNOMED Code(s): 24866702 Plan: 1. Continue symptomatic and supportive care 2. Patient may have clear liquid diet, n.p.o. after midnight 3. Avoid NSAIDs 4. Protonix 40 mg daily for GI prophylaxis 5. Anemia profile ordered 6. Bowel prep this evening 7. Plan for upper endoscopy and colonoscopy tomorrow, patient agreeable 8. Daily CBC, transfuse for hemoglobin less than 7 Thank you for this consultation, we will continue to follow Dr. Jericho Briscoe I agree with the dictator's note, documented as a scribe by Jacqui Echols.
[2025-06-14] MEDS: PEG 3350 (236 GM/BTL) + LYTES 4,000 ML BOTTLE PO ONE (18:44)
[2025-06-14] MEDS: MONTELUKAST 10 MG TAB PO SCH (20:18)
[2025-06-14] MEDS: amLODIPine 10 MG TAB PO SCH (20:18)
[2025-06-14] MEDS: DAPAGLIFLOZIN PROPANEDIOL 5 MG TABLET PO SCH (20:18)
[2025-06-14] MEDS: ATORVASTATIN 40 MG TAB PO SCH (20:18)
[2025-06-14] MEDS: FERROUS SULFATE 325 MG TAB PO SCH (20:18)
[2025-06-14 22:45] LABS: Ferritin 37.1 ng/mL (22.0-322.0); Iron 210.0 UG/DL (65-175); Total Iron Binding Capacity 514.0 UG/DL (228-460); Vitamin B12 494.0 pg/mL (200.0-944.0)
--- NOTE | 2025-06-15 07:18 | P.HPIM ---
History of Present Illness H&P Date: 06/14/25 Chief Complaint: Symptomatic anemia/syncope HISTORY OF PRESENT ILLNESS: This is a 69-year-old male with previous medical history significant for hypertension and hypertensive cardiovascular disease, mixed hyperlipidemia, coronary artery disease status post PCI of the LAD 1996, and PCI of the LAD x 2 in 2002 has been under the care of cardiology, obesity obstructive sleep apnea, prediabetes, allergic rhinitis, GERD with esophagitis, sliding hiatal hernia, history of iron deficiency anemia requiring transfusion, patient has had a colonoscopy with Dr. Cote back in August 22, 2022 that showed evidence of internal hemorrhoids without evidence of any acute abnormalities except for diverticulosis, patient has been anemic over the last few months, and he had last workup back in 2016 with EGD and colonoscopy that showed evidence of hiatal hernia gastritis as well as diverticulosis with internal hemorrhoids, patient had recent labs in my office for an upcoming appointment for annual wellness visit, and he was found to be anemic, I recommended for the patient to have an EGD and colonoscopy as well as capsule endoscopy along with a CT scan of the chest abdomen pelvis for further evaluation of his anemia, along with laboratory evaluation, however the patient woke up in the morning and he went to the shop, and all of a sudden he stood up and all of a sudden he felt like he is going to pass out, he asked us friend to take him to the emergency department for evaluation, he had almost presyncopal episode, he denies any chest pain at that time, he has no shortness of breath, he continues have some swelling in both lower extremities, which is normal for him, he ended up coming to the ER and he was found to have a hemoglobin of 8, but because of the presentation and because of his symptomatic anemia he was kept in the hospital with GI consultation for EGD and colonoscopy. REVIEW OF SYSTEMS: Constitutional: No documented fever, no chills, no night sweats. No weight change. No weakness, fatigue or lethargy. No daytime sleepiness. EENT: No headache. No blurred vision or double vision, no loss of vision. No loss of Hearing, no ringing in the ears, no dizziness. No nasal drainage or congestion. No epistaxis. No sore throat. Lungs: Positive for shortness of breath, no cough, no sputum production. No wheezing. Reports dyspnea with activity. Cardiovascular: No chest pain, positive for lower extremity edema. No palpitations. No paroxysmal nocturnal dyspnea. No orthopnea. Positive for lightheadedness or dizziness. No syncopal episodes. Abdominal: Reports no abdominal pain. No nausea, vomiting. No diarrhea. No constipation. Positive for bloody but no tarry stools reports no loss of appetite. Genitourinary: No dysuria, increased frequency, urgency. No urinary retention. Musculoskeletal: No myalgias. No muscle weakness, no gait dysfunction, no frequent falls. No back pain. No neck pain. Integumentary: Left leg abrasion, no lesions, Positive for stasis dermatitis no unusual bruising. No change in hair or nails. Neurologic: No aphasia. No facial droop. No change in mentation. No head injury. No headache. No paralysis. No paresthesia. Psychiatric: No depression. No anxiety. No mood swings. Endocrine: No abnormal blood sugars. No weight change. PAST MEDICAL HISTORY: Hypertension and hypertensive cardiovascular disease. Mixed hyperlipidemia. Allergic rhinitis. GERD with esophagitis. Sliding hiatal hernia. Coronary artery disease status post PCI of the LAD in 1996 and 2002 Obstructive sleep apnea. Prediabetes. Iron deficiency anemia. Bleeding hemorrhoids. Enlarged prostate. Venous stasis with stasis dermatitis. PAST SURGICAL HISTORY: Left heart catheterization with PCI of the LAD 1996 Left heart catheterization with PCI of the LAD 01/2003 Colonoscopy 08/22/2022 ORIF in the tib-fib right 1992 Colonoscopy 2016 EGD 2016 SOCIAL HISTORY: Patient is a lifelong non-smoker, he drinks socially, he denies any drugs or abuse, he works in a shop. FAMILY HISTORY: Father at the age of 83 from CVA and had coronary artery disease post CABG x 330 years ago, mother is alive 87-year-old with coronary artery disease status post PCI, patient had 4 brothers 1 at the age of 38 from lung cancer the other with hypertension, patient has 3 sisters 1 with CAD post PCI. PHYSICAL EXAMINATION: General: 69-year-old male laying down in bed in no apparent distress. HEENT: Head is atraumatic, normocephalic, pupils were equal round reactive to light and recommendation, extraocular muscle movement were intact, sclera nonicteric, conjunctivae were pale, mucous membranes of the mouth are somewhat dry. Neck: Supple, no JVP, normal carotid upstroke bilaterally, no lymphadenopathy. Chest: Decreased breath sounds at the bases, few rhonchi, no expiratory wheezes, no chest wall tenderness, no intercostal retractions. Heart: First heart sound is normal, second heart sounds normal systolic ejection murmur 2 over 6-second the left sternal border. Abdomen: Soft, nontender, nondistended, positive bowel sounds. Extremities: There is +2 edema no calf tenderness DP +2 bilaterally. Neurologic examination: Patient is awake alert and oriented x3, cranial nerves II-12 appear grossly intact, muscle power were 5 out of 5 in upper extremities and 5 out of 5 in bilateral lower extremities, deep tendon reflexes normal bilaterally. ASSESSMENT AND PLAN: 1. Acute on chronic blood loss anemia that has been symptomatic with presyncopal episode. Admit the patient to the hospital start the patient on Protonix 40 mg every 12 hours, patient was started the prep today, to have an EGD and colonoscopy tomorrow morning, GI consultation with Dr. Briscoe appreciated, monitor the patient's symptoms very closely, follow the patient hemoglobin transfuse for hemoglobin less than 7. 2. Iron deficiency anemia status post iron replacement therapy along with prior workup including colonoscopy August 22, 2022 and prior to that in 2016 along with an EGD 2017. Patient will need to have repeated EGD and colonoscopy and if the workup is negative he will need to go for an MRI enterography versus capsule endoscopy and possible CT scan of the chest abdomen pelvis for further evaluation recommendation. 3. Coronary artery disease status post PCI of the LAD has been under the care of cardiology. Continue carvedilol 12.5 mg orally twice every day, atorvastatin 40 mg once every day, hold aspirin due to upcoming procedure tomorrow morning. 4. Hypertension and hypertensive cardiovascular disease. Continue patient on losartan 100/12.5 mg once every day, carvedilol 12.5 mg orally twice every day, amlodipine 5 mg once every day, continue spironolactone 25 mg orally once every day. Monitor the patient blood pressure very closely. 5. Mixed hyperlipidemia. Continue patient on atorvastatin 40 mg once every day, monitor lipid panel, keep LDL 55-70. 6 allergic rhinitis. Continue montelukast 10 mg at bedtime. 7. Enlarged prostate. Monitor the patient for urinary retention. 8. Obesity with obstructive sleep apnea. Continue patient on current CPAP. 9. Prediabetes. Continue patient on Farxiga 5 mg orally once every day. 10. Venous stasis with stasis dermatitis bilateral knee-high PRETTY hose. 11. Iron deficiency anemia. Continue patient on iron 325 mg orally once every day. 12. Vitamin D deficiency. Continue vitamin D3 2000 unit once every day. 13. Admit to inpatient. Estimated length of stay 2 midnights. 14. Full code. Past Medical History Past Medical History: Coronary Artery Disease (CAD), Chest Pain / Angina, Hyperlipidemia, Hypertension, Osteoarthritis (OA), Sleep Apnea/CPAP/BIPAP Additional Past Medical History / Comment(s): occ "heart fluttering" , occ palpitations, anemia- had iron infusion 1 week ago for Hgb 6.9- Dr LORRIE Waller canceled cardiac procedure and wanted pt to have EGD/Colonoscopy first. covid 19 03/21 History of Any Multi-Drug Resistant Organisms: None Reported Past Surgical History: Heart Catheterization With Stent, Orthopedic Surgery Additional Past Surgical History / Comment(s): angioplasty x 2/total 3 stents, rt tibia/fibia-fx with pin, Past Anesthesia/Blood Transfusion Reactions: Motion Sickness Date of Last Stent Placement:: 07/2014 Past Psychological History: Anxiety, Panic Disorder Smoking Status: Never smoker Past Alcohol Use History: Rare Past Drug Use History: None Reported - Past Family History Brother(s) Family Medical History: Cancer Medications and Allergies Home Medications Medication Instructions Recorded Confirmed Type Aspirin [Adult Low Dose Aspirin EC] 81 mg PO HS 05/22/17 06/14/25 History carvediloL [Coreg] 12.5 mg PO BID 05/22/17 06/14/25 History Ferrous Sulfate [Iron (65 MG 325 mg PO HS 04/17/21 06/14/25 History Elemental)] Rosuvastatin [Crestor] 20 mg PO HS 04/17/21 06/14/25 History amLODIPine [Norvasc] 10 mg PO HS 04/17/21 06/14/25 History Ascorbic Acid [Vitamin C] 1,000 mg PO DAILY 08/20/22 06/14/25 History Multivit-Min/Folic/Vit K/Lycop 1 tab PO DAILY 08/20/22 06/14/25 History [Men's Multivitamin Tablet] Zinc Gluconate [Zinc] 50 mg PO DAILY 08/20/22 06/14/25 History Cholecalciferol (Vitamin D3) 50 mcg PO DAILY 06/14/25 06/14/25 History [Vitamin D3 (50 Mcg = 2000 Iu)] Empagliflozin [Jardiance] 10 mg PO HS 06/14/25 06/14/25 History Fexofenadine HCl [Ratna Allergy] 180 mg PO DAILY 06/14/25 06/14/25 History Irbesartan/Hydrochlorothiazide 1 tab PO DAILY 06/14/25 06/14/25 History [Irbesartan-Hctz 300-12.5 mg Tb] Montelukast [Singulair] 10 mg PO HS 06/14/25 06/14/25 History Naproxen Sodium [Aleve] 440 mg PO BID PRN 06/14/25 06/14/25 History Spironolactone [Aldactone] 25 mg PO DAILY 06/14/25 06/14/25 History Allergies Allergy/AdvReac Type Severity Reaction Status Date / Time No Known Allergies Allergy Verified 06/14/25 11:20 Physical Exam Vitals: Vital Signs Temp Pulse Resp BP Pulse Ox 06/14/25 10:47 57 L 18 112/54 96 06/14/25 10:34 97.9 F 59 L 18 96 06/14/25 10:30 61 16 103/55 06/14/25 09:47 97.8 F 58 L 18 97/55 98 Intake and Output 06/13/25 06/14/25 06/14/25 22:59 06:59 14:59 Other: Weight 106.594 kg Results CBC & Chem 7: 06/14/25 10:20 06/14/25 10:20 Labs: Abnormal Lab Results - Last 24 Hours (Table) 06/14/25 06/14/25 06/14/25 Range/Units 10:20 10:20 10:20 RBC 2.83 L (4.40-5.60) 10*6/uL Hgb 8.0 L (13.0-17.0) g/dL Hct 25.0 L (39.6-50.0) % APTT 21.4 L (22.0-30.0) sec Sodium 136 L (137-145) mmol/L Glucose 133 H (74-99) mg/dL Urine Glucose (UA) (Negative) 06/14/25 Range/Units 12:15 RBC (4.40-5.60) 10*6/uL Hgb (13.0-17.0) g/dL Hct (39.6-50.0) % APTT (22.0-30.0) sec Sodium (137-145) mmol/L Glucose (74-99) mg/dL Urine Glucose (UA) 4+ H (Negative)
[2025-06-15 07:50] LABS: Basophils # (A) 0.04 X 10*3/uL (0.00-0.10); Basophils % (A) 0.6 %; Eosinophils # (A) 0.13 X 10*3/uL (0.04-0.35); Eosinophils % (A) 1.8 %; HCT 24.9 % (39.6-50.0); HGB 7.5 g/dL (13.0-17.0); Immature Grans, Automated 0.40 %; Lymphocytes # (A) 1.48 X 10*3/uL (0.90-5.00); Lymphocytes % (A) 21.0 %; MCH 27.2 pg (27.0-32.0); MCHC 30.1 g/dL (32.0-37.0); MCV 90.2 FL (80.0-97.0); Monocytes # (A) 0.46 X 10*3/uL (0.20-1.00); Monocytes % (A) 6.5 %; NRBC Per 100 WBC 0 X 10*3/uL (0.00-0.01); Neutrophils # (A) 4.92 X 10*3/uL (1.80-7.70); Neutrophils % (A) 69.7 %; Platelet Count 225 X 10*3/uL (140-440); RBC 2.76 X 10*6/uL (4.40-5.60); RDW 14.6 % (11.5-14.5); WBC 7.06 X 10*3/uL (4.50-10.00)
[2025-06-15 08:11] LABS: ALT 15 U/L (10-49); AST 18 U/L (14-35); Albumin 3.8 g/dL (3.8-4.9); Albumin/Globulin Ratio 1.58 Ratio (1.60-3.17); Alkaline Phosphatase 72 U/L (41-126); Anion Gap 10.10 mmol/L (4.00-12.00); BUN/Creat Ratio 14.62 Ratio (12.00-20.00); Blood Urea Nitrogen 11.7 mg/dL (9.0-27.0); Calcium 8.5 mg/dL (8.7-10.3); Carbon Dioxide 24.9 mmol/L (21.6-31.8); Chloride 101 mmol/L (96-109); Globulin 2.4 g/dL (1.6-3.3); Glucose 75 mg/dL (70-110); Potassium 4.2 mmol/L (3.5-5.5); Sodium 136 mmol/L (135-145); Total Protein 6.2 g/dL (6.2-8.2)
[2025-06-15] MEDS: CHOLECALCIFEROL 25 MCG (1000 IU) TABLET PO SCH (09:45)
[2025-06-15] MEDS: MULTIVITAMINS, THERA 1 EACH TAB PO SCH (09:45)
[2025-06-15] MEDS: LORATADINE 10 MG TAB PO SCH (09:45)
[2025-06-15] MEDS: ZINC SULFATE 220 MG CAP PO SCH (09:46)
[2025-06-15] MEDS: LOSARTAN-HCTZ 50-12.5 MG 1 EACH TAB PO SCH (09:46)
[2025-06-15] MEDS: LOSARTAN 50 MG TAB PO SCH (09:46)
[2025-06-15] MEDS: SPIRONOLACTONE 25 MG TAB PO SCH (09:46)
[2025-06-15] MEDS: IV FLUID CONTINUATION 1,000 ML IV ONE (14:13)
[2025-06-15] MEDS ORDERED: PROPOFOL 10 MG/ML 20 ML VIAL IV ONE (14:14)
[2025-06-15] MEDS ORDERED: LIDOCAINE 1% INJ 10MG/ML (20 ML MDV) ONE (14:14)
--- NOTE | 2025-06-15 14:40 | P.PCN ---
Date of Procedure: 06/15/25 Procedure(s) Performed: Brief history: Patient is a pleasant 69-year-old white male admitted to hospital with lightheadedness and fatigue for the last 1 month duration. Hemoglobin was 8 g/dL. 2 months ago hemoglobin was 13 g/dL. He has been complaining of intermittent rectal bleeding for the last 6 months. Iron indices were consistent with iron deficiency anemia. He is hence scheduled for an upper endoscopy as well as colonoscopy to evaluate further. Procedure performed: Esophagogastroduodenoscopy with biopsy Colonoscopy with biopsy. Preoperative diagnosis: Severe symptomatic iron deficiency anemia Intermittent rectal bleeding Anesthesia: MAC Procedure: After informed consent was obtained from the patient was brought into the endoscopy unit and IV sedation was administered by anesthesia under continuous monitoring. Initially upper endoscopy was done. The Olympus GF 160 video endoscope was inserted inserted into the mouth and esophagus intubated without any difficulty and was gradually advanced into the stomach and duodenum and carefully examined. The bulb and second part of the duodenum had scattered erosions.. The scope was then withdrawn into the stomach adequately insufflated with air and upon careful examination the antrum and multiple scattered erosions and biopsies were done from this area. Mucosa of the body, cardia and fundus appeared normal. There was a 1 cm submucosal polyp identified in the proximal body of the stomach which was biopsied. The scope was then withdrawn into the esophagus. The GE junction was located at 40 cm to the incisors. It appeared regular with no erythema erosions or ulcerations. Rest of the esophagus appeared normal. Patient tolerated the procedure well. At this time the patient continued to remain sedation. Initial digital rectal examination was normal. Olympus CF 160 video colonoscope was then inserted into the rectum and gradually advanced to the cecum without any difficulty. Careful examination was performed as the scope was gradually being withdrawn. The prep was excellent. The cecum, appeared normal. In the ascending colon there was a 3 mm sessile polyp removed with cold biopsy. Rest of the ascending colon, transverse colon, descending colon, sigmoid colon and rectum appeared normal. Retroflexion was performed in the rectum and small internal hemorrhoids were noted. Patient tolerated the procedure well. Impression: 1. Upper endoscopy revealed antral erosive gastritis, erosive duodenitis and a 1 cm submucosal gastric polyp status post biopsy 2. Colonoscopy revealed 3 mm ascending colon polyp status post cold biopsy and small internal hemorrhoids Recommendations: Findings of this examination were discussed with the patient. He was advised to follow with the biopsy results. Continue with a high-fiber diet and fiber supplements on a regular basis. Start iron supplements daily. Follow-up in the office in 3 to 4 weeks.
[2025-06-16 08:09] VITALS: BP 140/71; PULSE 62; RESP 16; TEMP 98.1
[2025-06-16 08:28] LABS: HCT 25.3 % (39.6-50.0); HGB 7.9 g/dL (13.0-17.0); MCH 28.1 pg (27.0-32.0); MCHC 31.2 g/dL (32.0-37.0); MCV 90.0 fL (80.0-97.0); Platelet Count 237 10*3/uL (140-440); RBC 2.81 10*6/uL (4.40-5.60); RDW 14.8 % (11.5-14.5); WBC 6.20 10*3/uL (4.50-10.00)
[2025-06-16] MEDS: DOCUSATE 100 MG CAP PO SCH (08:44)
--- NOTE | 2025-06-16 10:28 | P.PN ---
Subjective Progress Note Date: 06/16/25 Principal diagnosis: Anemia This is a pleasant 69-year-old male with a past medical history of iron deficiency anemia who has required iron infusions in the past, coronary artery disease, hyperlipidemia, hypertension, obesity and sleep apnea who presented to the emergency department today with complaints of dizziness and lightheadedness that was occurring this morning and has actually been ongoing off-and-on for the last month especially in the mornings. Patient also states that he has been having blood in the toilet with bowel movement usually most mornings. He does have a history of hemorrhoids and states that he was having quite a bit of bleeding that has slowed down over the last week. Patient had blood work done showing normocytic normochromic anemia with a hemoglobin of 8.0. He denies any NSAID use and no anticoagulation. He had a colonoscopy done in [address] Uribe with findings of external hemorrhoids and diverticulosis. Prior to that he had a workup in 2016 for anemia where he had an upper endoscopy and colonoscopy with Dr. Armstrong with the upper endoscopy finding very small sliding hiatal hernia with no obvious esophagitis or complicated reflux disease. Mild antral gastritis and mild duodenitis with no ulcers or active bleeding. Colonoscopy revealed internal hemorrhoids otherwise exam of the colon to the cecum within normal limits. Patient denies any abdominal pain, nausea or vomiting. However has reported some weight loss over the last menstruation as well. 06/16/2025 Patient seen and examined today as a follow-up. He is sitting up in the bedside chair. Tolerating a regular diet. Denies any abdominal pain nausea or vomiting . No rectal bleeding. He is status post upper endoscopy and colonoscopy. Upper endoscopy with findings of antral erosive gastritis and erosive duodenitis. Colonoscopy with a ascending colon polyp status post polypectomy and small internal hemorrhoids. No active bleeding noted. Hemoglobin stable 7.9 up from 7.5 yesterday Objective - Vital Signs Vital signs: Vital Signs Temp 98.1 F 06/16/25 07:00 Pulse 62 06/16/25 07:00 Resp 16 06/16/25 07:00 BP 140/71 06/16/25 07:00 Pulse Ox 95 06/16/25 01:48 FiO2 Intake & Output 06/15/25 06/16/25 06/16/25 18:59 06:59 18:59 Intake Total 280 Balance 280 Intake: IV 100 Oral 180 Other: # Voids 3 2 - Exam General appearance: The patient is alert, oriented, appears in no acute dist ress. HET: Head is normocephalic and atraumatic. Conjunctiva pink. Sclera anicteric. Neck: Supple without lymphadenopathy. Abdomen: Soft, nontender, nondistended. Extremities: Normal skin color and turgor. No pedal edema Skin: No rashes, no jaundice Neurological: No focal deficits. Alert and oriented. - Labs CBC & Chem 7: 06/16/25 08:04 06/15/25 04:25 Assessment and Plan (1) Anemia Narrative/Plan: 69-year-old male with a history of iron deficiency anemia requiring iron infusions in the past presenting with symptomatic anemia with lightheadedness and dizziness also confirms that he has hemorrhoids and has been having quite a bit of bleeding which is normal for him with bowel movements in the mornings although has subsided some over the last week. He has had previous workup for anemia with no active bleeding noted. Recent blood work done in March of this year did show an iron deficiency anemia with low ferritin. Need to consider possible GI source for blood loss. Patient agreeable to proceed with upper endoscopy and colonoscopy for direct visualization. Patient is status post upper endoscopy and colonoscopy as findings dictated in HPI. Anemia likely secondary to antral erosive gastritis and duodenitis and rectal bleeding secondary to internal hemorrhoids. Recommend increased fiber and recommend increasing oral iron to twice a day. Protonix 40 mg daily. Current Visit: Yes Status: Acute Code(s): D64.9 - ANEMIA, UNSPECIFIED SNOMED Code(s): 756314201 (2) Rectal bleeding Current Visit: Yes Status: Acute Code(s): K62.5 - HEMORRHAGE OF ANUS AND RECTUM SNOMED Code(s): 38489139 Plan: 1. Continue symptomatic and supportive care 2. Recommend high-fiber diet 3. Avoid NSAIDs 4. Protonix 40 mg daily for GI prophylaxis 5. Increase iron to twice daily 6. Recommend Colace daily 7. Patient is status post upper endoscopy and colonoscopy 8. Recommend outpatient follow-up in couple weeks for biopsy results Thank you for this consultation, patient is cleared from gastroenterology for discharge. Dr. Jericho Briscoe I agree with the dictator's note, documented as a scribe by Jacqui Echols.
--- NOTE | 2025-06-16 10:33 | P.DS ---
Providers Date of admission: 06/14/25 12:30 Expected date of discharge: 06/16/25 Attending physician: Mata Millan Consults: 06/14/25 12:29 Consult Physician Routine Consulting Provider: Clarisse Briscoe Consult Reason/Comments: Anemia Do you want consulting provider notified?: Yes Primary care physician: Mata Millan Hospital Course: HISTORY OF PRESENT ILLNESS: This is a 69-year-old male with previous medical history significant for hypertension and hypertensive cardiovascular disease, mixed hyperlipidemia, coronary artery disease status post PCI of the LAD 1996, and PCI of the LAD x 2 in 2002 has been under the care of cardiology, obesity obstructive sleep apnea, prediabetes, allergic rhinitis, GERD with esophagitis, sliding hiatal hernia, history of iron deficiency anemia requiring transfusion, patient has had a colonoscopy with Dr. Cote back in August 22, 2022 that showed evidence of internal hemorrhoids without evidence of any acute abnormalities except for diverticulosis, patient has been anemic over the last few months, and he had last workup back in 2016 with EGD and colonoscopy that showed evidence of hiatal hernia gastritis as well as diverticulosis with internal hemorrhoids, patient had recent labs in my office for an upcoming appointment for annual wellness visit, and he was found to be anemic, I recommended for the patient to have an EGD and colonoscopy as well as capsule endoscopy along with a CT scan of the chest abdomen pelvis for further evaluation of his anemia, along with laboratory evaluation, however the patient woke up in the morning and he went to the shop, and all of a sudden he stood up and all of a sudden he felt like he is going to pass out, he asked us friend to take him to the emergency department for evaluation, he had almost presyncopal episode, he denies any chest pain at that time, he has no shortness of breath, he continues have some swelling in both lower extremities, which is normal for him, he ended up coming to the ER and he was found to have a hemoglobin of 8, but because of the presentation and because of his symptomatic anemia he was kept in the hospital with GI consultation for EGD and colonoscopy. 06/16: Patient sitting up in bed in no apparent distress, he underwent an EGD and colonoscopy yesterday, his EGD showed evidence of gastritis, erosive duodenitis, submucosal gastric polyp status post biopsy, colonoscopy did show evidence of 3 mm polyp that was snared away, internal hemorrhoids, patient was started on iron 325 mg orally twice every day, he was started already on Protonix 40 mg orally once every day, patient will be discharged home today follow-up with me as an outpatient on July 24, 2025 discharge diagnoses: 1. Acute on chronic blood loss anemia that has been symptomatic with presyncopal episode. 2. Iron deficiency anemia status post EGD and colonoscopy 3. Coronary artery disease status post PCI of the LAD has been under the care of cardiology. 4. Hypertension and hypertensive cardiovascular disease. 5. Mixed hyperlipidemia. 6 allergic rhinitis. 7. Enlarged prostate. 8. Obesity with obstructive sleep apnea. 9. Prediabetes. 10. Venous stasis with stasis dermatitis bilateral knee-high PRETTY hose. 11. Iron deficiency anemia. 12. Vitamin D deficiency. Patient Condition at Discharge: Stable Plan - Discharge Summary Discharge Rx Participant: No New Discharge Prescriptions: New RX: Pantoprazole [Protonix] 40 mg PO -BRKFST #90 tab No Action RX: carvediloL [Coreg] 12.5 mg PO BID RX: Aspirin [Adult Low Dose Aspirin EC] 81 mg PO HS Zinc Gluconate [Zinc] 50 mg PO DAILY Multivit-Min/Folic/Vit K/Lycop [Men's Multivitamin Tablet] 1 tab PO DAILY Naproxen Sodium [Aleve] 440 mg PO BID PRN PRN Reason: Pain Cholecalciferol (Vitamin D3) [Vitamin D3 (50 Mcg = 2000 Iu)] 50 mcg PO DAILY Spironolactone [Aldactone] 25 mg PO DAILY Montelukast [Singulair] 10 mg PO HS Irbesartan/Hydrochlorothiazide [Irbesartan-Hctz 300-12.5 mg Tb] 1 tab PO DAILY Fexofenadine HCl [Ratna Allergy] 180 mg PO DAILY RX: Rosuvastatin [Crestor] 20 mg PO HS RX: Ferrous Sulfate [Iron (65 MG Elemental)] 325 mg PO HS RX: amLODIPine [Norvasc] 10 mg PO HS Ascorbic Acid [Vitamin C] 1,000 mg PO DAILY Empagliflozin [Jardiance] 10 mg PO HS Discharge Medication List RX: Aspirin [Adult Low Dose Aspirin EC] 81 mg PO HS 05/22/17 [History] RX: carvediloL [Coreg] 12.5 mg PO BID 05/22/17 [History] RX: Ferrous Sulfate [Iron (65 MG Elemental)] 325 mg PO HS 04/17/21 [History] RX: Rosuvastatin [Crestor] 20 mg PO HS 04/17/21 [History] RX: amLODIPine [Norvasc] 10 mg PO HS 04/17/21 [History] Ascorbic Acid [Vitamin C] 1,000 mg PO DAILY 08/20/22 [History] Multivit-Min/Folic/Vit K/Lycop [Men's Multivitamin Tablet] 1 tab PO DAILY 08/20/22 [History] Zinc Gluconate [Zinc] 50 mg PO DAILY 08/20/22 [History] Cholecalciferol (Vitamin D3) [Vitamin D3 (50 Mcg = 2000 Iu)] 50 mcg PO DAILY 06/14/25 [History] Empagliflozin [Jardiance] 10 mg PO HS 06/14/25 [History] Fexofenadine HCl [Ratna Allergy] 180 mg PO DAILY 06/14/25 [History] Irbesartan/Hydrochlorothiazide [Irbesartan-Hctz 300-12.5 mg Tb] 1 tab PO DAILY 06/14/25 [History] Montelukast [Singulair] 10 mg PO HS 06/14/25 [History] Naproxen Sodium [Aleve] 440 mg PO BID PRN 06/14/25 [History] Spironolactone [Aldactone] 25 mg PO DAILY 06/14/25 [History] RX: Pantoprazole [Protonix] 40 mg PO AC-BRKFST #90 tab 06/16/25 [Rx] Follow up Appointment(s)/Referral(s): Mata Millan MD [Primary Care Provider] - 1-2 days Clarisse Briscoe MD [STAFF PHYSICIAN] - 2 Weeks Patient Instructions/Handouts: High Fiber Diet (DC)
[2025-06-16] MEDS ORDERED: FERROUS SULFATE 325 MG TAB PO SCH (17:30)
[2025-06-17] MEDS ORDERED: PANTOPRAZOLE 40 MG TABLET PO SCH (07:30)
== END 2025-06-16 11:10 | disposition home or self-care (01) ==
LOC: EC 09:39 → 6NMEDSUR 12:30
PROVIDERS: ADMIT Internal Medicine; ATTEND Internal Medicine
DX: D62 Acute posthemorrhagic anemia (principal); D50.9 Iron deficiency anemia, unspecified; K29.50 Unspecified chronic gastritis without bleeding; K31.7 Polyp of stomach and duodenum; K26.9 Duodenal ulcer, unspecified as acute or chronic, without hemorrhage or perforation; D12.2 Benign neoplasm of ascending colon; K64.8 Other hemorrhoids; K21.00 Gastro-esophageal reflux disease with esophagitis, without bleeding; I25.10 Atherosclerotic heart disease of native coronary artery without angina pectoris; G47.33 Obstructive sleep apnea (adult) (pediatric); E78.2 Mixed hyperlipidemia; F41.0 Panic disorder [episodic paroxysmal anxiety]; I11.9 Hypertensive heart disease without heart failure; R73.03 Prediabetes; J30.9 Allergic rhinitis, unspecified; K44.9 Diaphragmatic hernia without obstruction or gangrene; N40.0 Benign prostatic hyperplasia without lower urinary tract symptoms; I87.8 Other specified disorders of veins; I87.2 Venous insufficiency (chronic) (peripheral); E55.9 Vitamin D deficiency, unspecified; E66.9 Obesity, unspecified; Z68.37 Body mass index [BMI] 37.0-37.9, adult; Z95.5 Presence of coronary angioplasty implant and graft; Z79.82 Long term (current) use of aspirin; Z79.84 Long term (current) use of oral hypoglycemic drugs; Z79.899 Other long term (current) drug therapy
CPT/HCPCS: 96376 ×3; 96374; 99285; 36415; 93005; 85379; 88305; 80053 ×2; 82607; 82728; 82746; 83540; 83550; 83735; 84484; 85025 ×2; 85027; 85610; 85730; 81003; 71046; 45380; 43239; G0378 ×3; J2003; J2704; J2470 ×3